=== PATIENT | female | born 1980 | race Hispanic/Latino ===

== ENCOUNTER 2023-07-10 06:59 | Day surgery (SDC) | payer BC ==
[2023-07-07 10:54] LABS: Absolute Lymphocytes (CBC) 1.7 K/uL (0.7-4.9); Hematocrit 35.1 % (36.0-45.0); Lymphocytes % 22.5 % (15.3-44.8); MCV 79.7 fL (80-100); MPV 8.4 fL (7.6-11.3); Platelets 350 thou/uL (152-406)
--- NOTE | 2023-07-07 10:54 | RAD REPORT ---
EXAM DESCRIPTION: RAD - Chest Pa And Lat (2 Views) - 07/07/2023 10:46 am CLINICAL HISTORY: Pre op pending carpal tunnel release Chest pain. COMPARISON: No comparisons FINDINGS: The lungs are clear. The heart is normal in size. No displaced fractures. IMPRESSION: No acute or concerning finding suspected.
[2023-07-07 11:02] LABS: Protime INR 1.1
[2023-07-07 11:08] LABS: Potassium 3.9 mEq/L (3.5-5.1)
--- NOTE | 2023-07-08 18:12 | EKG ---
Test Date: 2023-07-07 Test Time: 10:28:59 [employer] Psych[employer] Nurse: ISHAN MEASUREMENT RESULTS: Intervals: Rate: 71 KS: 148 QRSD: 80 QT: 382 QTc: 415 [place]: P: 56 KS: 148 QRS: 83 T: 27 INTERPRETIVE STATEMENTS: Normal sinus rhythm Normal ECG No previous ECG available for comparison Electronically Signed On 07-08-23 18:10:35 CDT by Tavon Jolley
[2023-07-10] MEDS ORDERED: CEFAZOLIN SODIUM 1 GM/VIAL ONE (07:27)
[2023-07-10] MEDS ORDERED: Ringers Lactate 1,000 ML IV ONE (07:27)
[2023-07-10] MEDS ORDERED: NS 0.9% VIAL 30 ML ONE (07:32)
[2023-07-10] MEDS ORDERED: MIDAZOLAM HCL 2 MG/2 ML INJ ONE (07:32)
[2023-07-10] MEDS ORDERED: LIDOCAINE 2% MPF 5 ML VIAL ONE (07:32)
[2023-07-10] MEDS ORDERED: FENTANYL CITR 100 MCG/2 ML ONE (07:32)
[2023-07-10] MEDS ORDERED: propofoL 200 MG/20 ML VIAL IV ONE (07:32)
[2023-07-10] MEDS ORDERED: KETOROLAC 30 MG/ML INJ ONE (07:32)
[2023-07-10] MEDS ORDERED: ONDANSETRON 4 MG/2 ML VIAL ONE (07:43)
[2023-07-10] MEDS ORDERED: LIDOCAINE 1% MPF 30 ML VIAL ONE (07:44)
[2023-07-10] MEDS: BUPIVACAINE 0.25% PF 10 ML VIAL ONE ×2 (08:25→08:37)
--- NOTE | 2023-07-10 09:02 | P.BOP ---
Preoperative diagnosis: right carpal tunnel syndrome Postoperative diagnosis: same Primary procedure: right open carpal tunnel release Door Captain: NONE,NONE Estimated blood loss: 2 cc Specimen: none Findings: see dictation Anesthesia: Leann block Complications: None Implants: none Fluids & blood products: per anesthesia record; TT: 29 mins @ 300 mmHg Transferred to: Recovery Room Condition: Good
--- NOTE | 2023-07-10 09:05 | P.OP ---
Preoperative diagnosis: right carpal tunnel syndrome Postoperative diagnosis: same Primary procedure: right open carpal tunnel release Anesthesia: Leann block Estimated blood loss: 2 cc Specimen: none Findings: see dictation Operative Technique: Reason for Surgery: The patient had physical exam findings as well as EMG findings consistent with right carpal tunnel syndrome. I discussed with the patient at length risks and benefits associated with the procedure. They expressed understanding and elected proceed with operative treatment. Description of Procedure: After informed consent was obtained the patient was identified in the preoperative holding area. The right upper extremity was marked patient. Patient then brought back to the operating room transferred the operative table in supine fashion. The right upper extremity was exsanguinated and the tourniquet was inflated to 300 mmHg and placed under [place] block anesthesia. Approximately a 3 cm longitudinal incision was made just ulnar to the thenar crease. Dissection was then taken down to the palmar fascia which was identified. A Vidal elevator was then placed just deep to the palmar fascia to protect the median nerve at all times. A 15 blade was then used to release the palmar fascia and transverse carpal ligament leaving the Vidal elevator to protect the nerve at all times. Any remaining fascial bands were then released using a blunt tip Metzenbaum scissor. The tips were him superficially to protect the median nerve at all times. The wound was then irrigated thoroughly with normal saline. The skin was approximated using a 5-0 Prolene. Sterile dressings were applied and patient was awakened and transferred to PACU in stable condition. Postoperative plan: The patient will follow-up in 1 to 2 weeks for wound check and suture removal. They may begin to work on range of motion exercises at this time. Complications: None Implants: none Fluids & blood products: per anesthesia record; TT: 30 mins @ 300 mmHg Transferred to: Recovery Room Condition: Good
[2023-07-10] MEDS ORDERED: CODEINE 30MG/APAP 300MG TAB ONE (09:52)
[2023-07-10 10:23] VITALS: TEMP 97.8; O2SAT 100
[2023-07-10 10:24] VITALS: BP 110/74
== END 2023-07-10 09:59 | disposition home or self-care (01) ==
LOC: PRE 06:59
PROVIDERS: ATTEND Orthopaedic Surgery Sports Medicine
PROC: 01N50ZZ Release Median Nerve, Open Approach (ICD-10-PCS; principal; 2023-07-10 08:00)
DX: G56.01 Carpal tunnel syndrome, right upper limb (principal)
CPT/HCPCS: 93005; 85025; 80048; 36415; 85610; 85730; 71046; 64721; A4216; J2704; J2001 ×2; J2250; J3010; J2405; J7120; J0690

== ENCOUNTER 2023-07-10 12:38 | Emergency (ER) | payer BC ==
--- OUTSIDE RECORDS SUMMARY | 2023-07-10 12:45 | XMS REPORT | Continuity of Care Document ---
:1980 Author Organization [facility] t Address [address] [place] [address] Care Team Providers Name Role Phone Vinay Cruz Attending Clinician Unavailable Eric Anderson Attending Clinician Lab, Adc Fam Pob I Attending Clinician Unavailable Renuka Chambers Attending Clinician RENUKA KHAN Attending Clinician Unavailable Doctor Unassigned, [place] Attending Clinician Unavailable ANKITA THORNTON M.D. Attending Clinician Unavailable Physician, Non Associated Attending Clinician Unavailable Ankita Thornton Attending Clinician Ankita Thornton Admitting Clinician Payers Payer Name Policy Type Policy Number Effective Date Expiration Date S jose enrique Blue [employer] 6 [id number] 2019 Common Spiri t Blue Shield of 00:00:00 - [facility] Problems Condition Condition Condition Status Onset Resolution Last Treating Co mments Source Name Details Category Date Date Treatment Clinician Date BDDC - BDDC - Diagnosis Active 2016-02-13 M emoritraci GERD K21.9 GERD K21.9 02-07 08:27:00 l Active 00:00: Sunol 02/08/2016 00 [facility] RAPID RAPID Diagnosis Active 2016-01-05 Mem oria HEART BEAT HEART BEAT 01-05 16:36:00 l Active 00:00: Aleksandar 01/05/2016 00 [facility] DEHYDRATIO DEHYDRATI Diagnosis Active 2016-01-08 Ravin N ON Active 01-05 08:16:00 l 01/05/2016 00:00: Benito paulino [address] POST POST Diagnosis Active 2015-12-26 Mem oria GASTRIC GASTRIC 12-26 22:44:00 l SLEEVE SLEEVE 00:00: Aleksandar COMPLICATI COMPLICATI 00 ONS ONS Active 12/26/2015 [facility] PERFORATED Diagnosis Active 2016-01-05 Memoria BOWEL PERFORATED 12-26 13:50:00 l BOWEL 00:00: Sunol Active 00 12/26/2015 [facility] BOD POD BOD POD Diagnosis Active 2018-11-05 Memoria Active 11-30 14:16:00 l 11/30/2000 08:00: Benito paulino SMR [address] [place] [id number] [place] [id number] tunnel Spirit syndrome - [facility] of right [facility] [id number] [place] [address] tunnel Spirit syndrome - [facility] of left [facility] [id number] Seasonal Problem Comm on allergic Spirit rhinitis, - [facility] unspecifie [facility] [id number] Iron Problem Common deficiency Spirit anemia due - [facility] to dietary [facility] [id number] History of Problem Co mmon gastric Spirit bypass - [facility] [id number] Non-season Problem Com mon al Spirit allergic - [facility] rhinitis, St unspecifie kes [facility] [id number] Prediabete Problem Co mmon s Spirit - [facility] [id number] Migraine Problem Comm on without Spirit aura and - [facility] migrainosu Medica l s, not Center intractabl e [id number] Constipati Problem Com mon on, Spirit unspecifie - CHI d St constipati [facility] on type [facility] [id number] Acute non Problem Com mon intractabl Spirit e - [facility] tension-ty [facility] [id number] Adult BMI Problem Com mon 34.0-34.9 Spirit kg/sq m - [facility] [id number] History of Problem Co mmon laparoscop Spirit [facility] cholecyste [facility] Type 2 Type 2 Problem Active [facility] diabetes diabetes Physic i mellitus mellitus ans Asthma Asthma Problem Active [facility] Physici ans Vitamin D Vitamin D Problem Active [facility] deficiency deficiency Ph ysici ans Anemia Anemia Problem Active 2023-06-18 Jerry tanner (disorder) (disorder) 23:27:07 l Active Sunol Problem 06/18/2023 [facility] Asthenia Asthenia Problem Active 2023-06-18 Memoria (finding) (finding) 23:27:07 l Active Sunol Problem 06/18/2023 [facility] Carpal Carpal Problem Active 2023-06-18 Jerry tanner tunnel tunnel 23:27:07 l syndrome syndrome Benito n (disorder) (disorder) Active Problem 06/18/2023 [facility] 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 23:27:07 l thy thy Sunol (disorder) (disorder) Active Problem 06/18/2023 [facility] Headache Headache Problem Active 2023-06-18 Memoria (finding) (finding) 23:27:07 l Active Aleksandar Problem 06/18/2023 [facility] Migraine Migraine Problem Active 2023-06-18 Memoria (disorder) (disorder) 23:27:07 l Active Sunol Problem 06/18/2023 [facility] Simple Simple Problem Active 2023-06-18 Jerry tanner obesity obesity 23:27:07 l (disorder) (disorder) He rmann Active Problem 06/18/2023 [facility] PERFORATIO PERFORATI Diagnosis Active 2016-01-05 Memoria N OF ON OF 13:50:00 l INTESTINE INTESTINE Herm mundo (NONTRAUMA (NONTRAUMA TIC) TIC) Active [facility] Allergies, Adverse Reactions, Alerts Allergy Allergy Status Severity Reaction(s) Onset Inactive Treating Comm ents Source Name Type Date Date Clinician NO KNOWN Drug Active Univers ALLERGIE Class ity of [facility] No Known No Known Active Memori a Medicati Medicati l on on Sunol Allerggrecia [facility] Social History Social Habit Start Date Stop Date Quantity Comments Source Exposure to SARS-CoV-2 Yes Un [facility] (event) [facility] [place] History of Tobacco Use Co mmon [facility] Sex Assigned At Com mon [facility] Smoking Status Start Date Stop Date Source Unknown if ever smoked [facility] Tobacco smoking status 2023-05-05 20:45:33 2023-05-05 20:45:33 M [facility] Social History [facility] Medications Ordered Filled Start Stop Current Ordering Indication Dosage Frequency Signature Comments Components Source Medication Medication Date Date Medication? Clinician (SIG) Name Name phentermine Yes TAKE ONE Me moria 37.5 mg 6-06 (1) l oral tablet 20:56: TABLET(S) H ermann 00 BY MOUTH ONCE A DAY. Adipex-P Adipex-P No 1{table QD Adipex-P 37.5 MG 37.5 MG 4-03 t} 37.5 MG 00:00: 00 Adipex-P Adipex-P 2021-11 No 1{table QD Adipex-P 37.5 MG 37.5 MG 2-12 t} 37.5 MG 00:00: 00 Mounsaydaro Marryro 2021-11- No Mounjaro 2.5 2.5 1-10 12-10 2.5 MG/0.5ML MG/0.5ML 00:00: 00:00 MG/0.5ML 00 :00 Adipex-P Adipex-P 2021-11 No 1{table QD Adipex-P 37.5 MG 37.5 MG 0-10 t} 37.5 MG 00:00: 00 Adipex-P Adipex-P 2021-0 No 1{table QD Adipex-P 37.5 MG 37.5 MG 5-24 t} 37.5 MG 00:00: 00 Adipex-P Adipex-P 2021-0 No 1{table QD Adipex-P 37.5 MG 37.5 MG 4-26 t} 37.5 MG 00:00: 00 Adipex-P Adipex-P 2022- No 1{table QD Adipex-P 37.5 MG 37.5 MG 1-13 02-12 t} 37.5 MG 00:00: 00:00 00 :00 Adipex-P Adipex-P 2020-11 No 1{table QD Adipex-P 37.5 MG 37.5 MG 1-10 t} 37.5 MG 00:00: 00 Adipex-P Adipex-P 2020-11 No 1{table QD Adipex-P 37.5 MG 37.5 MG 1-10 t} 37.5 MG 00:00: 00 Adipex-P Adipex-P 2020-11 No 1{table QD Adipex-P 37.5 MG 37.5 MG 1-10 t} 37.5 MG 00:00: 00 Adipex-P Adipex-P 2020-11- No 1{table QD Adipex-P 37.5 MG 37.5 MG 0-19 11-18 t} 37.5 MG 00:00: 00:00 00 :00 Ivermectin Ivermectin No QD Ivermectin 3 MG 3 MG 8-27 3 MG 00:00: 00 ProAir HFA ProAir HFA No 2{puffs ProAir HFA 108 (90 108 (90 8-16 _as_nee 108 (90 Base) Base) 00:00: ded} Base) MCG/ACT MCG/ACT 00 MCG/ACT ProAir HFA ProAir HFA No 2{puffs ProAir HFA 108 (90 108 (90 8-16 _as_nee 108 (90 Base) Base) 00:00: ded} Base) MCG/ACT MCG/ACT 00 MCG/ACT ProAir HFA ProAir HFA No 2{puffs ProAir HFA 108 (90 108 (90 8-16 _as_nee 108 (90 Base) Base) 00:00: ded} Base) MCG/ACT MCG/ACT 00 MCG/ACT ProAir HFA ProAir HFA No 2{puffs ProAir HFA 108 (90 108 (90 8-16 _as_nee 108 (90 Base) Base) 00:00: ded} Base) MCG/ACT MCG/ACT 00 MCG/ACT ProAir HFA ProAir HFA No 2{puffs ProAir HFA 108 (90 108 (90 8-16 _as_nee 108 (90 Base) Base) 00:00: ded} Base) MCG/ACT MCG/ACT 00 MCG/ACT ProAir HFA ProAir HFA No 2{puffs ProAir HFA 108 (90 108 (90 8-16 _as_nee 108 (90 Base) Base) 00:00: ded} Base) MCG/ACT MCG/ACT 00 MCG/ACT ProAir HFA ProAir HFA No 2{puffs ProAir HFA 108 (90 108 (90 8-16 _as_nee 108 (90 Base) Base) 00:00: ded} Base) MCG/ACT MCG/ACT 00 MCG/ACT ProAir HFA ProAir HFA No 2{puffs ProAir HFA 108 (90 108 (90 8-16 _as_nee 108 (90 Base) Base) 00:00: ded} Base) MCG/ACT MCG/ACT 00 MCG/ACT ProAir HFA ProAir HFA No 2{puffs ProAir HFA 108 (90 108 (90 8-16 _as_nee 108 (90 Base) Base) 00:00: ded} Base) MCG/ACT MCG/ACT 00 MCG/ACT ProAir HFA ProAir HFA No 2{puffs ProAir HFA 108 (90 108 (90 8-16 _as_nee 108 (90 Base) Base) 00:00: ded} Base) MCG/ACT MCG/ACT 00 MCG/ACT ProAir HFA ProAir HFA No 2{puffs ProAir HFA 108 (90 108 (90 8-16 _as_nee 108 (90 Base) Base) 00:00: ded} Base) MCG/ACT MCG/ACT 00 MCG/ACT ProAir HFA ProAir HFA No 2{puffs ProAir HFA Common 108 (90 108 (90 8-16 _as_nee 108 (90 Spi rit Base) Base) 00:00: ded} Base) - [facility] MCG/ACT MCG/ACT 00 MCG/ACT [facility] ProAir HFA ProAir HFA No 2{puffs ProAir HFA Common 108 (90 108 (90 8-16 _as_nee 108 (90 Spi rit Base) Base) 00:00: ded} Base) - [facility] MCG/ACT MCG/ACT 00 MCG/ACT [facility] Azithromyci Azithromyci 2020- No QD Azithromyc Common n 250 MG n 250 MG 8-16 08-21 in 250 MG S pirit 00:00: 00:00 - [facility] 00 :00 [facility] Azithromyci Azithromyci 2020- No QD Azithromyc Common n 250 MG n 250 MG 8-16 08-21 in 250 MG S pirit 00:00: 00:00 - [facility] 00 :00 [facility] Rimegepant Yes 75 mg = 1 Me moria 75 MG 3-17 tab, PO, l Disintegrat 21:45: ONCE, # 1 H ermann ing Oral 00 tab, 0 Tablet Refill(s), [Nurtec] other ProAir HFA ProAir HFA No 2{puffs ProAir HFA 108 (90 108 (90 1-08 _as_nee 108 (90 Base) Base) 00:00: ded} Base) MCG/ACT MCG/ACT 00 MCG/ACT ProAir HFA ProAir HFA No 2{puffs ProAir HFA 108 (90 108 (90 1-08 _as_nee 108 (90 Base) Base) 00:00: ded} Base) MCG/ACT MCG/ACT 00 MCG/ACT ProAir HFA ProAir HFA No 2{puffs ProAir HFA 108 (90 108 (90 1-08 _as_nee 108 (90 Base) Base) 00:00: ded} Base) MCG/ACT MCG/ACT 00 MCG/ACT ProAir HFA ProAir HFA No 2{puffs ProAir HFA 108 (90 108 (90 1-08 _as_nee 108 (90 Base) Base) 00:00: ded} Base) MCG/ACT MCG/ACT 00 MCG/ACT ProAir HFA ProAir HFA No 2{puffs ProAir HFA 108 (90 108 (90 1-08 _as_nee 108 (90 Base) Base) 00:00: ded} Base) MCG/ACT MCG/ACT 00 MCG/ACT ProAir HFA ProAir HFA No 2{puffs ProAir HFA 108 (90 108 (90 1-08 _as_nee 108 (90 Base) Base) 00:00: ded} Base) MCG/ACT MCG/ACT 00 MCG/ACT ProAir HFA ProAir HFA No 2{puffs ProAir HFA 108 (90 108 (90 1-08 _as_nee 108 (90 Base) Base) 00:00: ded} Base) MCG/ACT MCG/ACT 00 MCG/ACT ProAir HFA ProAir HFA No 2{puffs ProAir HFA 108 (90 108 (90 1-08 _as_nee 108 (90 Base) Base) 00:00: ded} Base) MCG/ACT MCG/ACT 00 MCG/ACT ProAir HFA ProAir HFA No 2{puffs ProAir HFA 108 (90 108 (90 1-08 _as_nee 108 (90 Base) Base) 00:00: ded} Base) MCG/ACT MCG/ACT 00 MCG/ACT ProAir HFA ProAir HFA No 2{puffs ProAir HFA 108 (90 108 (90 1-08 _as_nee 108 (90 Base) Base) 00:00: ded} Base) MCG/ACT MCG/ACT 00 MCG/ACT ProAir HFA ProAir HFA No 2{puffs ProAir HFA 108 (90 108 (90 1-08 _as_nee 108 (90 Base) Base) 00:00: ded} Base) MCG/ACT MCG/ACT 00 MCG/ACT ProAir HFA ProAir HFA No 2{puffs ProAir HFA 108 (90 108 (90 1-08 _as_nee 108 (90 Base) Base) 00:00: ded} Base) MCG/ACT MCG/ACT 00 MCG/ACT ProAir HFA ProAir HFA No 2{puffs ProAir HFA Common 108 (90 108 (90 1-08 _as_nee 108 (90 Spi rit Base) Base) 00:00: ded} Base) - [facility] MCG/ACT MCG/ACT 00 MCG/ACT [facility] ProAir HFA ProAir HFA 2020-0 No 2{puffs ProAir HFA Common 108 (90 108 (90 1-08 _as_nee 108 (90 Spi rit Base) Base) 00:00: ded} Base) - [facility] MCG/ACT MCG/ACT 00 MCG/ACT [facility] topiramate 1 Yes 50 mg = 2 Me moria 25 MG Oral 2-09 tab, PO, l Tablet 19:49: Bedtime, # Samantha nn [Topamax] 00 60 tab, 3 Refill(s), Pharmacy: [facility] 149, 149.86, cm, 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, Height, 72.727, kg, 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, Weight topiramate 0 Yes 25 mg = 1 Me moria 25 MG Oral 7-24 tab, PO, l Tablet 18:56: BID, # 60 Benito n [Topamax] 00 tab, 3 Refill(s), Pharmacy: [facility] 149, 152.4, cm, 06/22/20 13:35:00 CDT, Height, 80.909, kg, 06/22/20 13:35:00 CDT, Weight Sumatriptan Yes 100 mg = 1 Memoria 100 MG Oral 7-24 tab, PO, l Tablet 18:56: PRN, PRN Sunol [Imitrex] 00 headache, # 9 tab, 1 Refill(s), Pharmacy: [facility] 149, 152.4, cm, 06/22/20 13:35:00 CDT, Height, 80.909, kg, 06/22/20 13:35:00 CDT, Weight Phentermine Yes 15 mg = 1 M emoria Hydrochlori 7-24 cap, PO, l de 15 MG 18:37: Daily, # Samantha nn Oral 00 30 cap, 0 Capsule Refill(s) Vitamin D Vitamin D Yes PRATIMA Take 1 UT (Ergocalcif (Ergocalcif 4-16 BREAUX N.P. capsule Physici malini) [id number] malini) 56092 00:00: two times ans UNIT Oral UNIT Oral 00 per week Capsule Capsule Potassium No Notes: Memori a Chloride 10 2-07 (Same as: l MEQ 20:00: K-Dur 10) Extended "Do Not Release Crush" Tablet With food and full glass of water potassium No Notes: Memori a chloride 2-07 (Same as: l 15:00: KCL) Infuse no faster than 10 mEq/hr if given peripheral ly. potassium No 10 mEq, Memor ia chloride 01-06 Route: l 14:01: IVPB, Q1H, Dosing Weight 85, kg, Total Dose = 60 meq, Priority: NOW, Start date: 01/06/16 8:01:00, Duration: 6 doses or times, Stop date: 01/06/16 13:01:00, Periphe ral Line sodium No 15 mmol, Memoria phosphate 01-06 Route: l 04:51: IVPB, ONCE, Dosing Weight 85, kg, PRN, Priority: NOW, Start date: 01/05/16 22:51:00, Stop date: 02/04/16 22:50:00, none Fluconazole No Notes: Jerry tanner -07 (Same as: l 03:00: Diflucan) Amoxicillin No Notes: Jerry tanner 500 MG / 2-07 With food. l Clavulanate 03:00: (Same as: H ermann 125 MG Oral 00 Augmentin Tablet 500) [Augmentin 500-mg] tramadol No Notes: Not Mem oria hydrochlori 01-06 to exceed l de 50 MG 02:05: 400mg/day. Her patton Oral Tablet 00 (Same As: Ultram) Ondansetron No Notes: Jerry tanner 4 MG 01-06 (Same as: l Disintegrat 02:05: Zofran Herm mundo ing Tablet 00 ODT) Tylenol No Notes: Memoria with 2-07 (acetamino l Codeine 120 02:05: phen-codei Aleksandar mg-12 mg/5 00 ne 120-12 mL oral mg/5 ml liquid oral liq) Do not exceed 4gm/day of acetaminop hen. (Same as: Tylenol w/Codeine) Magnesium No Notes: Memori a Sulfate 2-07 WASTE: F/P l 02:00: - Sink; E Sunol 00 - Municipal Trash Bin sodium No 15 mmol, 5 Memor ia phosphate + 2-07 mL, Route: l Sodium 01:59: IVPB, PRN, Samantha nn Chloride 00 Dosing 0.9% IV 250 Weight 85, mL kg, PRN Abnormal Lab Result, Start date: 01/05/16 19:59:00, Duration: 30 day, Stop date: 02/04/16 19:58:00 Sodium No 1,000 mL, Memori a Chloride 2-06 Rate: 100 l 0.154 22:29: ml/hr, Sunol MEQ/ML 00 Infuse Injectable over: 10.1 Solution hr, Route: IV, Dosing Weight 85 kg, Total Volume: 1,011.2, Priority: STAT, Start date: 01/05/16 16:29:00, Duration: 1 doses or times, Stop date: 01/06/16 2:34:00 D5W 1/2NS + No Notes: Jerry tanner KCL 20mEq/L 2-06 PREMIX IV l 1000ml 22:29: - Do Not Aleksandar (Premix) 00 Alter 1,000 mL WASTE: F/P - Sink; E - Municipal Trash Bin Lovenox No Notes: Memoria 2-06 (Same as: l 22:28: Lovenox) Aleksandar 00 Zofran ODT No Notes: Memor ia 2-06 (Same as: l 22:26: Zofran Sunol 00 ODT) potassium No Notes: Memori a chloride 2-06 (Same as: l 22:00: KCL) Aleksandar 00 Infuse no faster than 10 mEq/hr if given peripheral ly. Isolyte S No Notes: Memori a PH 7.4 2-06 (Same as: l 1,000 mL 20:25: Isolyte S Herm mundo 00 PH 7.4) tramadol Yes 100 mg = 2 Mem oria hydrochlori 2-02 tab, PO, l de 50 MG 15:14: Q6H, PRN Samantha nn Oral Tablet 00 Pain Score 4-6, X 5 day, # 40 tab, 0 Refill(s) fluconazole Yes 400 mg = 2 Memoria 200 mg oral 2-02 tab, PO, l tablet 15:14: [id number], X Samantha nn 00 8 day, # 16 tab, 0 Refill(s) Amoxicillin Yes 1 tab, PO, Memoria 500 MG / 2-02 [id number], X l Clavulanate 15:14: 8 day, # He rmann 125 MG Oral 00 24 tab, 0 Tablet Refill(s) [Augmentin 500-mg] Ondansetron Yes 4 mg = 1 Me moria 4 MG 2-02 tab, PO, l Disintegrat 15:14: TID, PRN He rmann ing Tablet 00 Nausea / Vomiting, Dissolve tab under tongue, X 5 day, # 15 tab, 0 Refill(s) Tylenol Yes 15 mL, PO, Jerry tanner with 2-02 Q6H, PRN l Codeine 120 15:14: Pain Score Sunol mg-12 mg/5 00 1-3, X 7 mL oral day, # 420 liquid mL, 0 Refill(s) Diflucan No Notes: Memoria 2-02 (Same as: l 13:00: Diflucan) Aleksandar 00 potassium No Notes: Memori a chloride 2-01 (Same as: l 22:00: KCL) Aleksandar Infuse no faster than 10 mEq/hr if given peripheral ly. Zofran ODT No Notes: Memor ia 2-01 (Same as: l 18:09: Zofran Aleksandar 00 ODT) potassium No Notes: Memori a chloride 2-01 (Same as: l 16:53: KCL) Aleksandar 00 Infuse over 2 hours. potassium No Notes: Memori a chloride 2-01 (Same as: l 16:08: KCL) Sunol 00 Infuse over 2 hours. Potassium No Notes: Memori a Chloride 2-01 (Same as: l 1.33 MEQ/ML 15:02: Potassium H ermann Oral 00 Chloride) Solution Magnesium No Notes: Memori a Sulfate 2-01 WASTE: F/P l 15:02: - Sink; E Aleksandar 00 - Municipal Trash Bin Ondansetron No Notes: Jerry tanner 0.8 MG/ML 12-31 (Same as: l Oral 14:03: Zofran) Aleksandar Solution 00 [Zofran] tramadol No Notes: Not Mem oria hydrochlori 12-31 to exceed l de 50 MG 14:03: 400mg/day. Her patton Oral Tablet 00 (Same As: Ultram) Tylenol No Notes: Memoria with 12-31 (acetamino l Codeine 120 14:03: phen-codei Aleksandar mg-12 mg/5 00 ne 120-12 mL oral mg/5 ml liquid oral liq) Do not exceed 4gm/day of acetaminop hen. (Same as: Tylenol w/Codeine) Amoxicillin No Notes: Jerry tanner 500 MG / 12-31 With food. l Clavulanate 14:00: (Same as: H ermann 125 MG Oral 00 Augmentin Tablet 500) [Augmentin 500-mg] Acetaminoph No 15 mL, PO, Memoria en 24 MG/ML 12-30 Q6H, PRN l / Codeine 18:45: Pain, 0 Samantha nn Phosphate 00 Refill(s) 2.4 MG/ML Oral Solution ondansetron No 4 mg = 1 Me moria 4 mg oral 12-30 tab, PO, l tablet 18:45: Q8H Sunol 00 Phenergan No Notes: Do Mem oria -31 not give l 17:04: IV push. Aleksandar 00 (Same as: Phenergan) Zofran No Notes: Memoria -31 (Same as: l 17:03: Zofran) Aleksandar MEDICATION WASTE Product Size: 4 mg Product Wasted: ___ mg potassium No 10 mEq, 50 Me moria chloride 1-31 mL, Route: l 14:10: IVPB, Drug Aleksandar form: INJ, Q1H, Dosing Weight 89.545, kg, Total Dose = 40 meq, Priority: STAT, Start date: 12/30/15 8:10:00, Duration: 4 doses or times, Stop date: 12/30/15 11:10:00, Periphe ral Line Potassium No Notes: Memori a Chloride 1-31 (Same as: l 1.33 MEQ/ML 14:09: Potassium H ermann Oral 00 Chloride) Solution docusate No Notes: Memoria sodium 150 1-31 (Same as: l mg/15 mL 03:00: Colace) Benito n oral liquid 00 Ofirmev No Notes: Memoria 1-31 Infuse l 00:00: over 15 Aleksandar 00 minutes Do not exceed 4gm/day of acetaminop hen MEDICATION WASTE Product Size: 1000 mg Product Wasted: ___ mg Tylenol No 15 mg/kg, Memor ia 12-29 Route: PO, l 18:00: Drug form: Sunol 00 LIQ, Q6H, Dosing Weight 89.545, kg, Start date: 12/29/15 12:00:00, Duration: 30 day, Stop date: 01/28/16 6:00:00, For term infants; Dosing 72 HR No Notes: Memoria Scopolamine -30 Change l 0.0139 16:20: patch Aleksandar MG/HR 00 every 72 Transdermal hours Patch (Same as: Transderm- Scop) Zofran No Notes: Memoria 1-30 (Same as: l 16:19: Zofran) Sunol 00 MEDICATION WASTE Product Size: 4 mg Product Wasted: ___ mg Neutra-Phos No Notes: Jerry tanner 1-30 (Same as: l 14:00: Neutra-Dhiraj Aleksandar 00 s) Potassium No Notes: Memori a Chloride 1-30 (Same as: l 1.33 MEQ/ML 10:47: Potassium H ermann Oral 00 Chloride) Solution D5W 1/2NS + No Notes: Jerry tanner KCL 20mEq/L 130 PREMIX IV l 1000ml 02:34: - Do Not Aleksandar (Premix) 00 Alter 1,000 mL WASTE: F/P - Sink; E - Municipal Trash Bin D5W 1/2NS No 1,000 mL, Mem oria 1000 mL 1-30 Rate: 75 l 02:28: ml/hr, Sunol 00 Infuse over: 13.3 hr, Route: IV, Dosing Weight 89.545 kg, Total Volume: 1,000, Start date: 12/28/15 20:28:00, Stop date: 01/27/16 15:30:00 D5W 1/2NS + 2015-0 No 1,000 mL, Mary thornton KCL 20mEq/L 12-28 Rate: 75 l 1000ml 21:30: ml/hr, (Premix) Infuse 1000 mL over: 13.3 hr, Route: IV, Dosing Weight 89.545 kg, Total Volume: 1,000, Start date: 12/28/15 15:30:00, Duration: 30 day, Stop date: 01/27/16 15:29:00 Dextrose No 12.5 gm, Memor ia 50% Syringe 12-28 25 mL, l 20:51: Route: IVP, Drug Form: INJ, Dosing Weight 89.545, kg, PRN, PRN Abnormal Lab Result, Start date: 12/28/15 14:51:00, Duration: 30 day, Stop date: 01/27/16 14:50:00, For FSBG 40 mg/dL - 60 mg/dL Insulin No 60 units) Jerry tanner regular 12-28 WASTE: F/P l 20:51: - Black; E - Qoopl Trash Bin Stable for 28 days at room temperatur e Expires in days from ____Date Zofran No 4 mg, Memoria 12-28 Route: l 15:26: IVP, Drug form: INJ, ONCE, Dosing Weight 89.545, kg, Start date: 12/28/15 9:26:00, Stop date: 12/28/15 9:26:00 potassium No 10 mEq, Memor ia chloride 12-28 Route: l 12:00: IVPB, Q1H, Dosing Weight 89.545, kg, Total Dose = 40 meq, Start date: 12/28/15 6:00:00, Duration: 4 doses or times, Stop date: 12/28/15 9:00:00, Periphe ral Line Magnesium No Notes: Memori a Sulfate 12-28 WASTE: F/P l 12:00: - Sink; E Sunol - Municipal Trash Bin Diflucan No Notes: Memoria 12-28 (Same as: l 12:00: Diflucan) Aleksandar Calcium No Notes: Memoria Gluconate 12-28 WASTE: F/P l 07:50: - Sink; E Sunol - Municipal Trash Bin Isolyte S No 500 mL, Memor ia PH-7.4 12-27 Route: IV, l (Bolus) IV 22:07: Dosing Samantha Weight 89.545, kg, ONCE, Start date: 12/27/15 16:07:00, Stop date: 12/27/15 16:07:00 Zofran No 4 mg, Memoria 12-27 Route: l 18:27: IVP, Drug form: INJ, ONCE, Dosing Weight 89.545, kg, Start date: 12/27/15 12:27:00, Stop date: 12/27/15 12:27:00 Diflucan No Notes: Memoria 12-27 (Same as: l 15:00: Diflucan) Sunol 00 Flagyl No Notes: Memoria 12-27 (Same as: l 14:00: Flagyl) Avoid alcohol. Isolyte S No Notes: Memori a PH 7.4 12-27 (Same as: l 1,000 mL 13:10: Isolyte S PH 7.4) Ofirmev No Notes: Memoria 12-27 Infuse l 12:00: over 15 Sunol minutes Do not exceed 4gm/day of acetaminop hen MEDICATION WASTE Product Size: 1000 mg Product Wasted: ___ mg Zofran No Notes: Memoria 12-27 (Same as: l 11:16: Zofran) Aleksandar 00 MEDICATION WASTE Product Size: 4 mg Product Wasted: ___ mg potassium No Notes: Memori a chloride 12-27 (Same as: l 10:00: KCL) Aleksandar 00 Infuse over 2 hours. Enoxaparin No Notes: Memor ia 12-27 (Same as: l 10:00: Lovenox) Isolyte S No 1,000 mL, Mem oria PH-7.4 12-27 Route: IV, l (Bolus) IV 09:24: Dosing Samantha Weight 89.545, kg, ONCE, Start date: 12/27/15 3:24:00, Stop date: 12/27/15 3:24:00 Dilaudid No Notes: Memoria 12-27 Same as: l 09:20: Dilaudid normal No 1,000 mL, Memori a saline 0.9% 12-27 Rate: 125 l IV 1,000 mL 09:19: ml/hr, Herm Infuse over: 8 hr, Route: IV, Dosing Weight 89.545 kg, Total Volume: 1,000, Start date: 12/27/15 3:19:00, Duration: 30 day, Stop date: 01/26/16 3:18:00 Flagyl No Notes: Memoria 12-27 (Same as: l 09:18: Flagyl) Avoid alcohol. Protonix No Notes: For Mem oria 12-27 IV push l 09:18: reconstitu te with 10 ml 0.9% sodium chloride and push over 2 minutes. (Same as: Protonix) Zosyn No Notes: Memoria 12-27 (Same as: l 09:18: Zosyn) Dosing based on Piperacill in component MEDICATION WASTE Product Size: 3375 mg Product Wasted: ___ mg Diflucan No Notes: Memoria 12-27 (Same as: l 08:36: Diflucan) Sunol 00 Iohexol No Notes: Memoria 12-27 (same l 07:15: as:Omnipaq ue 350). WASTE: F/P - Black; E - Municipal Trash Bin Potassium No Notes: Memori a Chloride 12-27 (Same as: l 1.33 MEQ/ML 05:13: Potassium H ermann Oral 00 Chloride) Solution Flagyl No Notes: Memoria 12-27 (Same as: l 03:28: Flagyl) Aleksandar 00 Avoid alcohol. cefepime No Notes: Memoria 12-27 (Same As: l 03:28: Maxipime) Sunol 00 MEDICATION WASTE Product Size: 1000 mg Product Wasted: ___ mg Vancomycin No 2000 mg: Me moria 12-27 infuse l 03:27: over 2.5 Aleksandar 00 hours MEDICATION WASTE Product Size: 1000 mg Product Wasted: ___ mg Sodium No 2,000 mL, Memori a Chloride 12-27 2000 l 0.154 03:23: ml/hr, Sunol MEQ/ML 00 Infuse Injectable Over: 1 Solution hr, Route: IV, 2,000, Drug form: INJ, ONCE, Priority: STAT, Dosing Weight 89.545 kg, Start date: 12/26/15 21:23:00, Duration: 1 doses or times, Stop date: 12/26/15 21:23:00 Ferrous Ferrous Yes Vinay 1 tablet Com mon Sulfate Sulfate [facility] Calcium Calcium Yes Vinay not Common Citrate Citrate Cruz defined [facility] Vitamin B12 Vitamin B12 Yes Vinay one Common [facility] [facility] Topamax Topamax Yes Vinay 1 tablet Com mon [facility] Multivitami Multivitami Yes Vinay not Common n Gummies n Gummies Cruz defined S pirit Adult Adult [facility] Slow Slow Yes Vinay 1 tablet Common Release Release [facility] [place] [facility] Calcium Calcium No Calcium Common Citrate 500 Citrate 500 Citrate Spirit MG MG 500 MG [facility] Adipex-P Adipex-P No 1{table QD Adipex-P Common 37.5 MG 37.5 MG t} 37.5 MG [facility] Vitamin B12 Vitamin B12 No QD Vitamin 2500 2500 B12 2500 Slow Slow No 1{table QD Slow Release Release t} Release Iron 160 Iron 160 Iron 160 (50 Fe) MG (50 Fe) MG (50 Fe) MG Ferrous Ferrous No 1{table BID Ferrous Sulfate 325 Sulfate 325 t} Sulfate (65 Fe) MG (65 Fe) MG 325 (65 Fe) MG Adipex-P Adipex-P No 1{table QD Adipex-P 37.5 MG 37.5 MG t} 37.5 MG Calcium Calcium No Calcium Citrate 500 Citrate 500 Citrate MG MG 500 MG Multivitami Multivitami No Multivitam n Gummies n Gummies in Gummies Adult - Adult - Adult - Adipex-P Adipex-P No 1{capsu QD Adipex-P 37.5 MG 37.5 MG le} 37.5 MG Topamax 25 Topamax 25 No 1{table BID Topamax 25 MG MG t} MG Multivitami Multivitami No Multivitam n Gummies n Gummies in Gummies Adult - Adult - Adult - Slow Slow No 1{table QD Slow Release Release t} Release Iron 160 Iron 160 Iron 160 (50 Fe) MG (50 Fe) MG (50 Fe) MG Adipex-P Adipex-P No 1{table QD Adipex-P 37.5 MG 37.5 MG t} 37.5 MG Topamax 25 Topamax 25 No 1{table BID Topamax 25 MG MG t} MG Calcium Calcium No Calcium Citrate 500 Citrate 500 Citrate MG MG 500 MG Ferrous Ferrous No 1{table BID Ferrous Sulfate 325 Sulfate 325 t} Sulfate (65 Fe) MG (65 Fe) MG 325 (65 Fe) MG Vitamin B12 Vitamin B12 No QD Vitamin 2500 2500 B12 2500 Adipex-P Adipex-P No 1{capsu QD Adipex-P 37.5 MG 37.5 MG le} 37.5 MG Ferrous Ferrous No 1{table BID Ferrous Sulfate 325 Sulfate 325 t} Sulfate (65 Fe) MG (65 Fe) MG 325 (65 Fe) MG Vitamin B12 Vitamin B12 No QD Vitamin 2500 2500 B12 2500 Zinc Zinc No Zinc Calcium Calcium No Calcium Citrate 500 Citrate 500 Citrate MG MG 500 MG Adipex-P Adipex-P No 1{capsu QD Adipex-P 37.5 MG 37.5 MG le} 37.5 MG Topamax 50 Topamax 50 No 1{table QD Topamax 50 MG MG t} MG Multivitami Multivitami No Multivitam n Gummies n Gummies in Gummies Adult - Adult - Adult - Slow Slow No 1{table QD Slow Release Release t} Release Iron 160 Iron 160 Iron 160 (50 Fe) MG (50 Fe) MG (50 Fe) MG Slow Slow No 1{table QD Slow Release Release t} Release Iron 160 Iron 160 Iron 160 (50 Fe) MG (50 Fe) MG (50 Fe) MG Calcium Calcium No Calcium Citrate 500 Citrate 500 Citrate MG MG 500 MG Ferrous Ferrous No 1{table BID Ferrous Sulfate 325 Sulfate 325 t} Sulfate (65 Fe) MG (65 Fe) MG 325 (65 Fe) MG Vitamin B12 Vitamin B12 No QD Vitamin 2500 2500 B12 2500 Multivitami Multivitami No Multivitam n Gummies n Gummies in Gummies Adult - Adult - Adult - Topamax 50 Topamax 50 No 1{table QD Topamax 50 MG MG t} MG Zinc Zinc No Zinc Adipex-P Adipex-P No 1{capsu QD Adipex-P 37.5 MG 37.5 MG le} 37.5 MG Slow Slow No 1{table QD Slow Release Release t} Release Iron 160 Iron 160 Iron 160 (50 Fe) MG (50 Fe) MG (50 Fe) MG Calcium Calcium No Calcium Citrate 500 Citrate 500 Citrate MG MG 500 MG Ferrous Ferrous No 1{table BID Ferrous Sulfate 325 Sulfate 325 t} Sulfate (65 Fe) MG (65 Fe) MG 325 (65 Fe) MG Vitamin B12 Vitamin B12 No QD Vitamin 2500 2500 B12 2500 Multivitami Multivitami No Multivitam n Gummies n Gummies in Gummies Adult - Adult - Adult - Topamax 50 Topamax 50 No 1{table QD Topamax 50 MG MG t} MG Zinc Zinc No Zinc Adipex-P Adipex-P No 1{capsu QD Adipex-P 37.5 MG 37.5 MG le} 37.5 MG Adipex-P Adipex-P No 1{capsu QD Adipex-P 37.5 MG 37.5 MG le} 37.5 MG Topamax 50 Topamax 50 No 1{table QD Topamax 50 MG MG t} MG Multivitami Multivitami No Multivitam n Gummies n Gummies in Gummies Adult - Adult - Adult - Zinc Zinc No Zinc Ferrous Ferrous No 1{table BID Ferrous Sulfate 325 Sulfate 325 t} Sulfate (65 Fe) MG (65 Fe) MG 325 (65 Fe) MG Calcium Calcium No Calcium Citrate 500 Citrate 500 Citrate MG MG 500 MG Vitamin B12 Vitamin B12 No QD Vitamin 2500 2500 B12 2500 Slow Slow No 1{table QD Slow Release Release t} Release Iron 160 Iron 160 Iron 160 (50 Fe) MG (50 Fe) MG (50 Fe) MG Slow Slow No 1{table QD Slow Release Release t} Release Iron 160 Iron 160 Iron 160 (50 Fe) MG (50 Fe) MG (50 Fe) MG Multivitami Multivitami No Multivitam n Gummies n Gummies in Gummies Adult - Adult - Adult - Zinc Zinc No Zinc Vitamin B12 Vitamin B12 No QD Vitamin 2500 2500 B12 2500 Ferrous Ferrous No 1{table BID Ferrous Sulfate 325 Sulfate 325 t} Sulfate (65 Fe) MG (65 Fe) MG 325 (65 Fe) MG Topamax 50 Topamax 50 No 1{table QD Topamax 50 MG MG t} MG Adipex-P Adipex-P No 1{capsu QD Adipex-P 37.5 MG 37.5 MG le} 37.5 MG Calcium Calcium No Calcium Citrate 500 Citrate 500 Citrate MG MG 500 MG Adipex-P Adipex-P No 1{capsu QD Adipex-P 37.5 MG 37.5 MG le} 37.5 MG Zinc Zinc No Zinc Multivitami Multivitami No Multivitam n Gummies n Gummies in Gummies Adult - Adult - Adult - Ferrous Ferrous No 1{table BID Ferrous Sulfate 325 Sulfate 325 t} Sulfate (65 Fe) MG (65 Fe) MG 325 (65 Fe) MG Calcium Calcium No Calcium Citrate 500 Citrate 500 Citrate MG MG 500 MG Slow Slow No 1{table QD Slow Release Release t} Release Iron 160 Iron 160 Iron 160 (50 Fe) MG (50 Fe) MG (50 Fe) MG Vitamin B12 Vitamin B12 No QD Vitamin 2500 2500 B12 2500 Topamax 50 Topamax 50 No 1{table QD Topamax 50 MG MG t} MG Calcium Calcium No Calcium Citrate 500 Citrate 500 Citrate MG MG 500 MG Multivitami Multivitami No Multivitam n Gummies n Gummies in Gummies Adult - Adult - Adult - Slow Slow No 1{table QD Slow Release Release t} Release Iron 160 Iron 160 Iron 160 (50 Fe) MG (50 Fe) MG (50 Fe) MG Zinc Zinc No Zinc Topamax 50 Topamax 50 No 1{table QD Topamax 50 MG MG t} MG Adipex-P Adipex-P No 1{capsu QD Adipex-P 37.5 MG 37.5 MG le} 37.5 MG Vitamin B12 Vitamin B12 No QD Vitamin 2500 2500 B12 2500 Ferrous Ferrous No 1{table BID Ferrous Sulfate 325 Sulfate 325 t} Sulfate (65 Fe) MG (65 Fe) MG 325 (65 Fe) MG Slow Slow No 1{table QD Slow Release Release t} Release Iron 160 Iron 160 Iron 160 (50 Fe) MG (50 Fe) MG (50 Fe) MG Zinc Zinc No Zinc Multivitami Multivitami No Multivitam n Gummies n Gummies in Gummies Adult - Adult - Adult - Vitamin B12 Vitamin B12 No QD Vitamin 2500 2500 B12 2500 Adipex-P Adipex-P No 1{capsu QD Adipex-P 37.5 MG 37.5 MG le} 37.5 MG Calcium Calcium No Calcium Citrate 500 Citrate 500 Citrate MG MG 500 MG Topamax 50 Topamax 50 No 1{table QD Topamax 50 MG MG t} MG Ferrous Ferrous No 1{table BID Ferrous Sulfate 325 Sulfate 325 t} Sulfate (65 Fe) MG (65 Fe) MG 325 (65 Fe) MG Calcium Calcium No Calcium Citrate 500 Citrate 500 Citrate MG MG 500 MG Ferrous Ferrous No 1{table BID Ferrous Sulfate 325 Sulfate 325 t} Sulfate (65 Fe) MG (65 Fe) MG 325 (65 Fe) MG Adipex-P Adipex-P No 1{capsu QD Adipex-P 37.5 MG 37.5 MG le} 37.5 MG Topiramate Topiramate No Topiramate 50 MG 50 MG 50 MG Zinc Zinc No Zinc Vitamin B12 Vitamin B12 No QD Vitamin 2500 2500 B12 2500 Topamax 50 Topamax 50 No 1{table QD Topamax 50 MG MG t} MG Slow Slow No 1{table QD Slow Release Release t} Release Iron 160 Iron 160 Iron 160 (50 Fe) MG (50 Fe) MG (50 Fe) MG Multivitami Multivitami No Multivitam n Gummies n Gummies in Gummies Adult - Adult - Adult - Topiramate Topiramate No Topiramate 50 MG 50 MG 50 MG Ferrous Ferrous No 1{table BID Ferrous Sulfate 325 Sulfate 325 t} Sulfate (65 Fe) MG (65 Fe) MG 325 (65 Fe) MG Topamax 50 Topamax 50 No 1{table QD Topamax 50 MG MG t} MG Slow Slow No 1{table QD Slow Release Release t} Release Iron 160 Iron 160 Iron 160 (50 Fe) MG (50 Fe) MG (50 Fe) MG Slow Slow No 1{table QD Slow Release Release t} Release Iron 160 Iron 160 Iron 160 (50 Fe) MG (50 Fe) MG (50 Fe) MG Topamax 50 Topamax 50 No 1{table QD Topamax 50 MG MG t} MG Topiramate Topiramate No Topiramate 50 MG 50 MG 50 MG Ferrous Ferrous No 1{table BID Ferrous Sulfate 325 Sulfate 325 t} Sulfate (65 Fe) MG (65 Fe) MG 325 (65 Fe) MG Slow Slow No 1{table QD Slow Release Release t} Release Iron 160 Iron 160 Iron 160 (50 Fe) MG (50 Fe) MG (50 Fe) MG Ferrous Ferrous No 1{table BID Ferrous Sulfate 325 Sulfate 325 t} Sulfate (65 Fe) MG (65 Fe) MG 325 (65 Fe) MG Topamax 50 Topamax 50 No 1{table BID Topamax 50 MG MG t} MG Topiramate Topiramate No QD Topiramate 50 MG 50 MG 50 MG Slow Slow No 1{table QD Slow Release Release t} Release Iron 160 Iron 160 Iron 160 (50 Fe) MG (50 Fe) MG (50 Fe) MG Topamax 25 Topamax 25 No 1{table BID Topamax 25 MG MG t} MG Ferrous Ferrous No 1{table BID Ferrous Sulfate 325 Sulfate 325 t} Sulfate (65 Fe) MG (65 Fe) MG 325 (65 Fe) MG Adipex-P Adipex-P No 1{capsu QD Adipex-P 37.5 MG 37.5 MG le} 37.5 MG Adipex-P Adipex-P No 1{table QD Adipex-P 37.5 MG 37.5 MG t} 37.5 MG Vitamin B12 Vitamin B12 No QD Vitamin 2500 2500 B12 2500 Calcium Calcium No Calcium Citrate 500 Citrate 500 Citrate MG MG 500 MG Multivitami Multivitami No Multivitam n Gummies n Gummies in Gummies Adult - Adult - Adult - Vitamin B12 Vitamin B12 No QD Vitamin Common 2500 2500 B12 2500 Spirit - [facility] Ferrous Ferrous No 1{table BID Ferrous Com mon Sulfate 325 Sulfate 325 t} Sulfate Spirit (65 Fe) MG (65 Fe) MG 325 (65 - [facility] Fe) MG [facility] Slow Slow No 1{table QD Slow Common Release Release t} Release Spirit Iron 160 Iron 160 Iron 160 - C HI (50 Fe) MG (50 Fe) MG (50 Fe) MG [facility] Adipex-P Adipex-P No 1{capsu QD Adipex-P Common 37.5 MG 37.5 MG le} 37.5 MG [facility] Topamax 25 Topamax 25 No 1{table BID Topamax 25 Common MG MG t} MG [facility] Multivitami Multivitami No Multivitam Common n Gummies n Gummies in Gummies [facility] Adult - Adult - Adult - [facility] Calcium Calcium No Calcium Common Citrate 500 Citrate 500 Citrate Spirit MG MG 500 MG [facility] Adipex-P Adipex-P No 1{table QD Adipex-P Common 37.5 MG 37.5 MG t} 37.5 MG [facility] Vitamin B12 Vitamin B12 No QD Vitamin Common 2500 2500 B12 2500 [facility] Ferrous Ferrous No 1{table BID Ferrous Com mon Sulfate 325 Sulfate 325 t} Sulfate Spirit (65 Fe) MG (65 Fe) MG 325 (65 - [facility] Fe) MG [facility] Slow Slow No 1{table QD Slow Common Release Release t} Release Spirit Iron 160 Iron 160 Iron 160 - C HI (50 Fe) MG (50 Fe) MG (50 Fe) MG [facility] Adipex-P Adipex-P No 1{capsu QD Adipex-P Common 37.5 MG 37.5 MG le} 37.5 MG [facility] Topamax 25 Topamax 25 No 1{table BID Topamax 25 Common MG MG t} MG [facility] Multivitami Multivitami No Multivitam Common n Gummies n Gummies in Gummies [facility] Adult - Adult - Adult - - [facility] Phentermine Phentermine 2019- No Vinay Take 1/2 Common HCl HCl 07-24 Cruz tab Spirit 00:00 - [facility] :00 [facility] Vital Signs Vital Name Observation Time Observation Value Comments Source height 2022-11-10 60 [in_i] Common [facility] - 08:10:00 [facility] weight 2022-11-10 171 [lb_av] [facility] - 08:10:00 [facility] bmi 2022-11-10 33.39 kg/m2 Common [facility] - 08:10:00 [facility] blood pressure 2022-11-10 117 mm[Hg] [facility] - systolic 08:10:00 [facility] blood pressure 2022-11-10 75 mm[Hg] [facility] - diastolic 08:10:00 [facility] height 2022-10-09 60 [in_i] [facility] - 15:20:00 [facility] weight 2022-10-09 175.8 [lb_av] [facility] - 15:20:00 [facility] temperature 2022-10-09 97.2 [degF] [facility] - 15:20:00 [facility] bmi 2022-10-09 34.33 kg/m2 [facility] - 15:20:00 [facility] oximetry 2022-10-09 99 % [facility] - 15:20:00 [facility] respiratory rate 2022-10-09 18 /min Common Spir it - 15:20:00 [facility] blood pressure 2022-10-09 115 mm[Hg] [facility] - systolic 15:20:00 [facility] blood pressure 2022-10-09 71 mm[Hg] [facility] - diastolic 15:20:00 [facility] height 2022-09-08 60 [in_i] [facility] - 16:40:00 [facility] weight 2022-09-08 174 [lb_av] [facility] - 16:40:00 [facility] bmi 2022-09-08 33.98 kg/m2 [facility] - 16:40:00 [facility] height 2022-04-22 60 [in_i] [facility] - 07:40:00 [facility] weight 2022-04-22 170 [lb_av] [facility] - 07:40:00 [facility] temperature 2022-04-22 98 [degF] [facility] - 07:40:00 [facility] bmi 2022-04-22 33.2 kg/m2 [facility] - 07:40:00 [facility] height 2022-03-25 60 [in_i] [facility] - 16:40:00 [facility] weight 2022-03-25 171 [lb_av] [facility] - 16:40:00 [facility] temperature 2022-03-25 97.4 [degF] [facility] - 16:40:00 [facility] bmi 2022-03-25 33.39 kg/m2 [facility] - 16:40:00 [facility] height 2021-11-12 60 [in_i] [facility] - 11:40:00 [facility] weight 2021-11-12 163 [lb_av] [facility] - 11:40:00 [facility] bmi 2021-11-12 31.83 kg/m2 [facility] - 11:40:00 [facility] height 2021-10-09 60 [in_i] [facility] - 14:20:00 [facility] weight 2021-10-09 163 [lb_av] [facility] - 14:20:00 [facility] temperature 2021-10-09 98 [degF] [facility] - 14:20:00 [facility] bmi 2021-10-09 31.83 kg/m2 [facility] - 14:20:00 [facility] height 2021-09-17 60 [in_i] [facility] - 14:50:00 [facility] weight 2021-09-17 165.9 [lb_av] [facility] - 14:50:00 [facility] temperature 2021-09-17 98.1 [degF] [facility] - 14:50:00 [facility] bmi 2021-09-17 32.4 kg/m2 [facility] - 14:50:00 [facility] oximetry 2021-09-17 100 % [facility] - 14:50:00 [facility] respiratory rate 2021-09-17 18 /min Common Spir it - 14:50:00 [facility] blood pressure 2021-09-17 106 mm[Hg] [facility] - systolic 14:50:00 [facility] blood pressure 2021-09-17 63 mm[Hg] [facility] - diastolic 14:50:00 [facility] height 2021-07-26 60 [in_i] [facility] - 11:20:00 [facility] weight 2021-07-26 163 [lb_av] [facility] - 11:20:00 [facility] temperature 2021-07-26 98.5 [degF] [facility] - 11:20:00 [facility] bmi 2021-07-26 31.83 kg/m2 [facility] - 11:20:00 [facility] height 2021-07-15 60 [in_i] [facility] - 14:10:00 [facility] weight 2021-07-15 163 [lb_av] [facility] - 14:10:00 [facility] temperature 2021-07-15 97.5 [degF] [facility] - 14:10:00 [facility] bmi 2021-07-15 31.83 kg/m2 [facility] - 14:10:00 [facility] height 2021-06-05 60 [in_i] [facility] - 08:00:00 [facility] weight 2021-06-05 164 [lb_av] [facility] - 08:00:00 [facility] temperature 2021-06-05 97 [degF] [facility] - 08:00:00 [facility] bmi 2021-06-05 32.03 kg/m2 [facility] - 08:00:00 [facility] Systolic (mm Hg) 2023-05-05 [facility] rmann 20:45:00 Diastolic (mm Hg) 2023-05-05 [facility] ermann 20:45:00 Heart Rate 2023-05-05 Marcelina Oliver n 20:45:00 Height 2023-05-05 5 [ft_i] Marcelina Oliver n 20:45:00 Weight 2023-05-05 Marcelina Oliver n 20:45:00 BMI Calculated 2023-05-05 Marcelina Zhao mundo 20:45:00 Systolic (mm Hg) 2021-02-13 [facility] rmann 21:22:00 Diastolic (mm Hg) 2021-02-13 [facility] 21:22:00 Heart Rate 2021-02-13 [facility] 21[facility]22:00 Respitory Rate 2021-02-13 [facility] 21:22:00 Weight 2021-02-13 [facility] 21:22:00 Systolic (mm Hg) 2020-11-07 [facility] 19:31:00 Diastolic (mm Hg) 2020-11-07 [facility] ermann 19:31:00 Heart Rate 2020-11-07 [facility] 19:31:00 Respitory Rate 2020-11-07 [facility] 19:31:00 Height 2020-11-07 149.86 cm [facility] 19:31:00 Weight 2020-11-07 [facility] 19:31:00 BMI Calculated 2020-11-07 [facility] 19:31:00 Systolic (mm Hg) 2020-08-08 [facility] 14:17:00 Diastolic (mm Hg) 2020-08-08 [facility] ermann 14:17:00 Heart Rate 2020-08-08 [facility] 14:17:00 Respitory Rate 2020-08-08 [facility] 14:17:00 Height 2020-08-08 152.4 cm [facility] 14:17:00 Weight 2020-08-08 [facility] 14:17:00 BMI Calculated 2020-08-08 [facility] 14:17:00 Systolic (mm Hg) 2020-06-22 [facility] rmann 18:35:00 Diastolic (mm Hg) 2020-06-22 [facility] H ermann 18:35:00 Heart Rate 2020-06-22 [facility] 18:35:00 Respitory Rate 2020-06-22 [facility] 18:35:00 Height 2020-06-22 152.4 cm [facility] 18:35:00 Weight 2020-06-22 [facility] 18:35:00 BMI Calculated 2020-06-22 [facility] 18:35:00 BP Systolic 2019-02-25 110 mm[Hg] Location: LUE; [facility] 09:16:00 Position: Sitting BP Diastolic 2019-02-25 71 mm[Hg] Location: LUE; [facility] 09:16:00 Position: Sitting Height 2019-02-25 60 [in_us] [facility] 09:16:00 Weight 2019-02-25 172 [lb_av] [facility] 09:16:00 Body Mass Index 2019-02-25 33.59 kg/m2 [facility] Cal[facility] 09:16:00 Temperature 2019-02-25 98 [degF] Method: Oral [facility] 09:16:00 Heart Rate 2019-02-25 66 /min [facility] 09:16:00 Temperature Oral 2016-01-06 98.0 F [facility] (F) 22:54:00 Heart Rate 2016-01-06 [facility] 22:54:00 Respitory Rate 2016-01-06 [facility] 22:54:00 Systolic (mm Hg) 2016-01-06 [facility] 22:54:00 Diastolic (mm Hg) 2016-01-06 [facility] 22:54:00 Temperature Oral 2016-01-06 97.8 F [facility] (F) 17:52:00 Respitory Rate 2016-01-06 [facility] 17:52:00 Heart Rate 2016-01-06 [facility] 17:52:00 Systolic (mm Hg) 2016-01-06 [facility] 17:52:00 Diastolic (mm Hg) 2016-01-06 [facility] 17:52:00 Systolic (mm Hg) 2016-01-06 [facility] 14:46:00 Diastolic (mm Hg) 2016-01-06 [facility] 14:46:00 Heart Rate 2016-01-06 [facility] 14:46:00 Respitory Rate 2016-01-06 [facility] 14:46:00 Temperature Oral 2016-01-06 97.9 F [facility] (F) 14:46:00 Height 2016-01-06 152.4 cm [facility] 02:16:00 Weight 2016-01-06 [facility] 02:16:00 BMI Calculated 2016-01-06 [facility] 02:16:00 Height 2016-01-05 152.4 cm [facility] 18:43:00 BMI Calculated 2016-01-05 [facility] 18:43:00 Weight 2016-01-05 [facility] 18:43:00 Systolic (mm Hg) 2016-01-01 [facility] 18:00:00 Diastolic (mm Hg) 2016-01-01 [facility] 18:00:00 Temperature Oral 2016-01-01 98.0 F [facility] (F) 18:00:00 Respitory Rate 2016-01-01 [facility] 18:00:00 Heart Rate 2016-01-01 [facility] 18:00:00 Systolic (mm Hg) 2016-01-01 [facility] 14:28:00 Diastolic (mm Hg) 2016-01-01 [facility] 14:28:00 Respitory Rate 2016-01-01 [facility] 14:28:00 Heart Rate 2016-01-01 [facility] 14:28:00 Temperature Oral 2016-01-01 97.8 F [facility] (F) 14:28:00 Heart Rate 2016-01-01 [facility] 11:20:00 Temperature Oral 2016-01-01 98.3 F [facility] (F) 11:20:00 Systolic (mm Hg) 2016-01-01 [facility] 11:20:00 Diastolic (mm Hg) 2016-01-01 [facility] 11:20:00 Respitory Rate 2016-01-01 [facility] 11:20:00 BMI Calculated 2015-12-28 [facility] 16:53:00 Weight 2015-12-28 [facility] 16:53:00 Height 2015-12-28 152.4 cm [facility] 16:53:00 Weight 2015-12-27 [facility] 11:55:00 BMI Calculated 2015-12-27 [facility] 11:55:00 Height 2015-12-27 152.4 cm [facility] 11:55:00 Height 2015-12-27 152.4 cm [facility] 02:41:00 Weight 2015-12-27 [facility] 02:41:00 BMI Calculated 2015-12-27 [facility] 02:41:00 Procedures Procedure Date / Time Performed Performing Clinician Sourc e lap gastric sleeve [facility] Cholecyst[facility] Encounters Start End Encounter Admission Attending Care Care Encounter Source Date/Time Date/Time Type Type Clinicians Facility Department ID 2023-06-01 Outpatient Cruz, [facility] [id number] Common 09:11:00 [facility] [address] [facility] 2023-03-31 Outpatient Cruz, [facility] [id number] Common 15:53:00 [facility] [address] [facility] 2023-03-20 Outpatient Cruz, STLMLC STLMLC [id number] Common 09:04:00 Vinay [id number] [facility] 2022-11-06 Outpatient Cruz, STLMLC STLMLC [id number] Common 16:01:00 Vinay [id number] [facility] 2022-10-07 Outpatient Cruz, STLMLC STLMLC [id number] Common 15:18:00 Vinay [id number] [facility] 2022-09-02 Outpatient Cruz, STLMLC STLMLC [id number] Common 09:21:01 Vinay [id number] [facility] 2022-03-18 Outpatient [facility] [id number] 16:11:22 [id number] [facility] 2021-12-25 Outpatient Cruz, STLMLC STLMLC [id number] Common 13:38:48 Vinay [id number] [facility] 2021-12-25 Outpatient Cruz, STLMLC STLMLC [id number] Common 12:48:47 Vinay [id number] [facility] 2021-12-25 Outpatient Cruz, STLMLC STLMLC [id number] Common 12:36:22 Vinay [id number] [facility] 2021-12-25 Outpatient Cruz, STLMLC STLMLC [id number] Common 12:19:17 Vinay [id number] [facility] 2021-12-25 Outpatient Cruz, STLMLC STLMLC [id number] Common 11:41:43 Vinay [id number] [facility] 2021-12-25 Outpatient Cruz, STLMLC STLMLC [id number] Common 11:22:19 Vinay [id number] [facility] 2021-12-25 Outpatient Cruz, STLMLC STLMLC [id number] Common 11:13:20 Vinay [id number] [facility] 2021-12-25 Outpatient Cruz, STLMLC STLMLC [id number] Common 11:12:48 Vinay [id number] [facility] 2023-06-16 2023-06-16 Ambulatory [facility] MNA [id number] Memoria 15:15:00 15:15:00 Pre-Reg Neurology 09 taqueria Huertas 2023-06-16 2023-06-16 Outpatient [facility]IE MHIE [id number] [facility]oria 10:15:00 10:15:00 09 taqueria Huertas 2023-06-16 2023-06-16 Outpatient Justin, MHMISCHER MHMISCHER [id number] 10:15:00 10:15:00 Eric 09 Mejia 2023-05-05 2023-05-06 Outpatient [facility]IE MNA [id number] [facility]oria 20:45:00 04:59:59 Neurology 08 taqueria Huertas 2023-05-05 2023-05-05 Outpatient Justin, MHMISCHER MHMISCHER [id number] 15:45:00 23:59:59 Eric 08 Mejia 2023-05-05 2023-05-05 Outpatient MHIE MHIE [id number] Memoria 15:45:00 15:45:00 08 taqueria Huertas 2022-11-10 2022-11-10 OFFICE STLMLC STLMLC [id number] Co mmon 00:00:00 00:00:00 VISIT EST Spir it PT LEVEL 3 - [facility] 2022-10-09 2022-10-09 PREV VISIT STLMLC STLMLC [id number] Common 00:00:00 00:00:00 EST AGE Spirit 40-64 - [facility] 2022-09-08 2022-09-08 OFFICE STLMLC STLMLC [id number] Co mmon 00:00:00 00:00:00 VISIT EST Spir it PT LEVEL 3 - [facility] 2022-04-22 2022-04-22 OFFICE STLMLC STLMLC [id number] Co mmon 00:00:00 00:00:00 VISIT EST Spir it PT LEVEL 3 - [facility] 2022-03-25 2022-03-25 OFFICE STLMLC STLMLC [id number] Co mmon 00:00:00 00:00:00 VISIT EST Spir it PT LEVEL 3 - [facility] 2022-03-21 2022-03-21 (WEB) STLMLC STLMLC [id number] Co mmon 00:00:00 00:00:00 [facility] 2021-12-12 2021-12-12 (WEB) STLMLC STLMLC [id number] Co mmon 00:00:00 00:00:00 [facility] 2021-11-12 2021-11-12 OFFICE STLMLC STLMLC [id number] Co mmon 00:00:00 00:00:00 VISIT EST Spir it PT LEVEL 3 [facility] 2021-11-12 2021-11-12 (TEL) STLMLC STLMLC [id number] Co mmon 00:00:00 00:00:00 [facility] 2021-10-14 2021-10-14 (TEL) STLMLC STLMLC [id number] Co mmon 00:00:00 00:00:00 [facility] 2021-10-09 2021-10-09 OFFICE STLMLC STLMLC [id number] Co mmon 00:00:00 00:00:00 VISIT EST Spir it PT LEVEL 3 [facility] 2021-09-17 2021-09-17 PREV VISIT STLMLC STLMLC [id number] Common 00:00:00 00:00:00 EST AGE [facility] 18-39 [facility] 2021-07-26 2021-07-26 OFFICE STLMLC STLMLC [id number] Co mmon 00:00:00 00:00:00 VISIT EST Spir it PT LEVEL 3 [facility] 2021-07-25 2021-07-25 (TEL) STLMLC STLMLC [id number] Co mmon 00:00:00 00:00:00 [facility] 2021-07-15 2021-07-15 OFFICE STLMLC STLMLC [id number] Co mmon 00:00:00 00:00:00 VISIT EST Spir it PT LEVEL 3 [facility] 2021-07-15 2021-07-15 (TEL) STLMLC STLMLC [id number] Co mmon 00:00:00 00:00:00 [facility] 2021-06-05 2021-06-05 OFFICE STLMLC STLMLC [id number] Co mmon 00:00:00 00:00:00 VISIT [facility] 4 [facility] 2021-05-16 2021-05-16 Outpatient MHIE MHIE [id number] Memoria 15:00:00 15:00:00 07 l Aleksandar 2021-04-05 2021-04-05 Outpatient STLMLC STLMLC [id number] Common 00:00:00 00:00:00 [facility] 2021-04-05 2021-04-05 Outpatient STLMLC STLMLC [id number] Common 00:00:00 00:00:00 [facility] 2021-03-30 2021-03-30 Laboratory Lab, Adc Fam Pob I [facility] 1.2. [id number] Univers 15:30:55 15:50:55 Only [facility] [id number] [facility] [id number] Lenard as Professio [phone] [address] Office [facility] 2021-03-30 2021-03-30 Outpatient [facility] [id number] Univers 15:40:00 15:40:00 [facility] 2021-03-07 2021-03-07 Outpatient STLMLC STLMLC [id number] Common 00:00:00 00:00:00 [facility] 2021-02-13 2021-02-14 Outpatient nullFlavo MNA [id number] Memoria 20:45:00 04:59:59 r Neurology 06 l Yolanda Huertas 2021-02-13 2021-02-13 Outpatient ELSIE AndersonMISCHER MHMISCHER [id number] 15:45:00 23:59:59 Eric 06 Mejia 2021-02-13 2021-02-13 Outpatient MHIE MHIE [id number] Memoria 15:45:00 15:45:00 06 l Aleksandar 2020-12-18 2020-12-18 Outpatient STLMLC STLMLC [id number] Common 00:00:00 00:00:00 [facility] 2020-12-18 2020-12-18 Outpatient STLMLC STLMLC [id number] Common 00:00:00 00:00:00 [facility] 2020-12-07 2020-12-07 Outpatient STLMLC STLMLC [id number] Common 00:00:00 00:00:00 [facility] 2020-12-07 2020-12-07 Outpatient STLMLC STLMLC [id number] Common 00:00:00 00:00:00 [facility] 2020-12-05 2020-12-05 Laboratory Lab, Adc Fam Pob I [facility] 1.2. [id number] [id number] Univers 17:40:18 18:00:18 Isabelle Khan [facility] [id number] ity [facility] [id number] Lenard as Professio [phone] [address] Office Building One 2020-12-05 2020-12-05 Outpatient Demetrio KHAN [facility] [id number] Univers 18:00:00 18:00:00 RENUKA ity [facility] 2020-12-05 2020-12-05 Letter Doctor IHSAN [id number] Univers 00:00:00 00:00:00 (Out) Unassigned, [place] [id number] [facility] [id number] Lenard as [phone] [address] 2020-11-07 2020-11-08 Outpatient nullFlavo MNA [id number] Memoria 19:15:00 05:59:59 r Neurology 05 l [place] Hu[place] 2020-11-07 2020-11-07 Outpatient Justin MHMISCHER MHMISCHER [id number] 13:15:00 23:59:59 Eric 05 Mejia 2020-11-07 2020-11-07 Outpatient MHIE MHIE [id number] Memoria 13:15:00 13:15:00 05 l Aleksandar 2020-10-11 2020-10-11 Outpatient STLMLC STLMLC [id number] Common 00:00:00 00:00:00 [facility] 2020-09-17 2020-09-17 Outpatient STLMLC STLMLC [id number] Common 00:00:00 00:00:00 [facility] 2020-08-28 2020-08-28 Outpatient STLMLC STLMLC [id number] Common 00:00:00 00:00:00 [facility] 2020-08-24 2020-08-24 Outpatient STLMLC STLMLC [id number] Common 00:00:00 00:00:00 [facility] 2020-08-24 2020-08-24 Outpatient STLMLC STLMLC [id number] Common 00:00:00 00:00:00 [facility] 2020-08-08 2020-08-09 Outpatient nullFlavo MNA [id number] Memoria 14:00:00 04:59:59 r Neurology 04 l Yolanda Sunol 2020-08-08 2020-08-08 Outpatient JACOB Anderson MISCHER [id number] 09:00:00 23:59:59 Eric Maco Ba 2020-08-08 2020-08-08 Outpatient MHIE MHIE [id number] Memoria 09:00:00 09:00:00 04 l Sunol 2020-07-23 2020-07-23 [facility] [id number] Common 15:25:00 15:25:00 [place] [address] [facility] 2020-07-23 2020-07-23 [facility] [id number] Common 15:00:00 15:00:00 [place] [address] [facility] 2020-06-26 2020-06-26 [facility] [id number] Common 06:44:00 06:44:00 [place] [address] [facility] 2020-06-22 2020-06-23 Outpatient nullFlavo MNA [id number] Memoria 18:45:00 04:59:59 r Neurology 03 l Yolanda Zhaoann 2020-06-22 2020-06-22 Outpatient JACOB Anderson MISCHER [id number] 13:45:00 23:59:59 Eric Alex Ba 2020-06-22 2020-06-22 Ambulatory nullFlavo MNA [id number] Memoria 18:45:00 18:45:00 Pre-Reg r Neurology 00 l [place] Aleksandar 2020-06-22 2020-06-22 Ambulatory nullFlavo MNA [id number] Memoria 18:45:00 18:45:00 Pre-Reg r Neurology 01 l [place] Aleksandar 2020-06-22 2020-06-22 Ambulatory nullFlavo MNA [id number] Memoria 18:45:00 18:45:00 Pre-Reg r Neurology 02 l [place] Sunol 2020-06-22 2020-06-22 [facility] [id number] Common 14:51:00 14:51:00 t [facility] [address] [facility] 2020-06-22 2020-06-22 Outpatient MHIE MHIE [id number] Memoria 13:45:00 13:45:00 01 l Sunol 2020-06-22 2020-06-22 Outpatient MHIE MHIE [id number] Memoria 13:45:00 13:45:00 02 l Sunol 2020-06-22 2020-06-22 Outpatient MHIE MHIE [id number] Memoria 13:45:00 13:45:00 03 l Aleksandar 2020-06-22 2020-06-22 Outpatient MHIE MHIE [id number] Memoria 13:45:00 13:45:00 00 l Sunol 2020-06-22 2020-06-22 Outpatient Krell, MHMISCHER MHMISCHER [id number] 13:45:00 13:45:00 Eric 02 [facility] 2020-06-22 2020-06-22 Outpatient Krell, MHMISCHER MHMISCHER [id number] 13:45:00 13:45:00 Eric 00 [facility] 2020-06-22 2020-06-22 Outpatient Krell, MHMISCHER MHMISCHER [id number] 13:45:00 13:45:00 Eric [facility] 2020-05-30 2020-05-30 [facility] [id number] Common 16:00:00 16:00:00 [address] [employer] [address] [facility] 2020-05-01 2020-05-01 Out[facility] [id number] Common 13:00:00 13:00:00 [place] [address] [facility] 2020-04-16 2020-04-16 Out[facility] [id number] Common 15:00:00 15:00:00 [place] [address] [facility] 2020-02-08 2020-02-08 Out[facility] [id number] Common 15:45:00 15:45:00 [place] [address] [facility] 2019-02-25 2019-02-25 Appointmen LUIS ENRIQUE THORNTON [facility] [id number] [place] 08:45:00 08:45:00 t; ANKITA THORNTON M.D. Surgery Jose Migueli Mario LUCIANO Specialty ans 2018-11-19 2019-02-18 [facility] [id number] Memoria 16:30:00 04:59:59 n Patient r [facility] 41 l Sunol 2018-11-19 2019-02-17 Outpatient Physician, 2.16.840. [id number] . [id number] 10:30:00 23:59:59 Non [id number] Associated 3.615.54 5.54 2016-02-13 2016-02-13 Bedded nullFlavo [facility] [id number] Memoria 13:25:00 15:00:00 Outpatient r Sunol 02 [facility] 2016-02-13 2016-02-13 Outpatient Norberto [facility] [id number] 08:25:00 10:00:00 Ankita Guardado 2016-01-05 2016-01-06 OBS nullFlavo [facility] [id number] Memoria 18:30:00 22:40:00 Observatio r Sunol 01 l n Patient [facility] 2016-01-05 2016-01-06 Outpatient Norberto [facility] [id number] 12:30:00 16:40:00 Ankita Guardado 2015-12-27 2016-01-01 Inpatient nullFlavo [facility] [id number] Memoria 02:32:00 18:40:00 r Sunol 00 [facility] 2015-12-26 2016-01-01 Outpatient Norberto [facility] [id number] 20:32:00 12:40:00 [place] [address] Results Test Description Test Time Test Comments Results Result Comments Source Lipid Panel With LDL/HDL Ratio 2022-10-09 00:00:00 Test Item Value Reference Range Interpretation Comme nts Cholesterol, Total (test code 159 mg/dL See_Comment [Automated message] The system = 3-3) which generated this result transmitted ref erence range: 100-199 mg/dL. The reference range was not u sed to interpret this result as normal/abnormal. Triglycerides (test code = 59 mg/dL See_Comment [Automated message] The system 1-8) which generated this result transmitted ref erence range: 0-149 mg/dL. Th e reference range was not used to interpret this result as rosario l/abnormal. HDL Cholesterol (test code = 82 mg/dL See_Comment [Automated message] The system 9) which generated this result transmitted ref erence range: >39 mg/dL. The refe rence range was not used to int erpret this result as rosario l/abnormal. UA/M w/rflx Culture, [id number] 00:00:00 Test Item Value Reference Range Interpretation Comments Specific [place] (test 1.019 1.005-1.030 code = 2965-2) pH (test code = 8.0 5.0-7.5 H 5803-2) Urine-Color (test code Yellow Yellow = 5778-6) Appearance (test code Turbid Clear A = 5767-9) WBC Esterase (test Negative Negative code = 5799-2) Protein (test code = Negative Negative/Trace 41676-8) Glucose (test code = Negative Negative 2349-9) Ketones (test code = Negative Negative 2514-8) Occult Blood (test Negative Negative code = 5794-3) Bilirubin (test code = Negative Negative 5770-3) Urobilinogen,Semi-Qn 1.0 mg/dL See_Comment [Autom ated message] (test code = 59412-0) The sy stem which generated this result transmitted ref erence range: 0.2-1.0 mg/dL. The reference r cameron was not used to interpret this result as normal/abnor mal. Nitrite, Urine (test Negative Negative code = 5802-4) Microscopic See below: Examination (test code = 54327-5) Urinalysis Reflex (test code = UNLOINC) Hemoglobin [id number] 00:00:00 Test Item Value Reference Range Interpretation Comments Hemoglobin A1c (test 5.3 % See_Comment [Autom ated message] The code = 4548-4) system which generated this result tra nsmitted reference range : 4.8-5.6 %. The referenc e range was not used to interpret this result as normal/abnormal . Comp. Metabolic Panel (14) (CMP)2022-10-09 00:00:00 Test Item Value Reference Range Interpretation Comments Glucose (test code = 82 mg/dL See_Comment [Autom ated message] 1745-7) The system [employer] generated this result transmitted ref erence range: 70-99 mg /dL. The reference r cameron was not used to interpret this result as normal/abnor mal. BUN (test code = 14 mg/dL See_Comment [Automated message] 3094-0) The system [employer] generated this result transmitted ref erence range: 6-24 mg/ dL. The reference r cameron was not used to interpret this result as normal/abnor mal. Creatinine (test code 0.70 mg/dL See_Comment [Auto mated message] = 2160-0) The system [employer] generated this result transmitted ref erence range: 0.57-1.0 0 mg/dL. The refe rence range was not u sed to interpret this result as normal/abnor mal. BUN/Creatinine Ratio 20 9-23 (test code = 3097-3) Sodium (test code = 138 mmol/L See_Comment [Automa iraj message] 9291-2) The system [employer] generated this result transmitted ref erence range: 134-144 mmol/L. The ref erence range was not u sed to interpret this result as normal/abnor mal. Potassium (test code = 4.7 mmol/L See_Comment [Aut omated message] 1148-3) The system [employer] generated this result transmitted ref erence range: 3.5-5.2 mmol/L. The ref erence range was not u sed to interpret this result as normal/abnor mal. Chloride (test code = 101 mmol/L See_Comment [Auto mated message] ) The system [facility] generated this result transmitted ref erence range: 96-106 m mol/L. The reference r cameron was not used to interpret this result as normal/abnor mal. Carbon Dioxide, Total 22 mmol/L See_Comment [Auto mated message] (test code = 2028-07) The s tem which generated this result transmitted ref erence range: 20-29 mm ol/L. The reference r cameron was not used to interpret this result as normal/abnor mal. Calcium (test code = 9.3 mg/dL See_Comment [Autom ated message] 98285-5) The system [facility] generated this result transmitted ref erence range: 8.7-10.2 mg/dL. The refe rence range was not u sed to interpret this result as normal/abnor mal. Protein, Total (test 7.2 g/dL See_Comment [Autom ated message] code = 2815-2) The system [facility] generated this result transmitted ref erence range: 6.0-8.5 g/dL. The reference r cameron was not used to interpret this result as normal/abnor mal. Albumin (test code = 4.5 g/dL See_Comment [Autom ated message] 1751-7) The system [facility] generated this result transmitted ref erence range: 3.8-4.8 g/dL. The reference r cameron was not used to interpret this result as normal/abnor mal. Globulin, Total (test 2.7 g/dL See_Comment [Auto mated message] code = 99284-4) The system [facility] generated this result transmitted ref erence range: 1.5-4.5 g/dL. The reference r cameron was not used to interpret this result as normal/abnor mal. A/G Ratio (test code = 1.7 1.2-2.2 9-0) Bilirubin, Total (test 0.3 mg/dL See_Comment [Aut omated message] code = 1974-) The system [facility] generated this result transmitted ref erence range: 0.0-1.2 mg/dL. The reference r cameron was not used to interpret this result as normal/abnor mal. Alkaline Phosphatase 98 IU/L See_Comment [Autom ated message] (test code = 6768-6) The sys tem which generated this result transmitted ref erence range: 44-121 I U/L. The reference r cameron was not used to interpret this result as normal/abnor mal. AST (SGOT) (test code 17 IU/L See_Comment [Auto mated message] = 1920-8) The system [employer] generated this result transmitted ref erence range: 0-40 IU/ L. The reference range was not used to int erpret this result as normal/abnormal . ALT (SGPT) (test code 10 IU/L See_Comment [Auto mated message] = 1742-6) The system whic h generated this result transmitted ref erence range: 0-32 IU/ L. The reference range was not used to int erpret this result as normal/abnormal . Uric Acid, [id number] 00:00:00 Test Item Value Reference Range Interpretation Comments Uric Acid (test 2.8 mg/dL See_Comment [Automated message] The code = 3084-1) system which generated this result tra nsmitted reference range : 2.6-6.2 mg/dL. The refe rence range was not u sed to interpret this result as normal/abnormal . CBC With Differential/[id number] 00:00:00 Test Item Value Reference Range Interpretation Comments WBC (test code = 9.4 x10E3/uL See_Comment [Automated 9690-2) message] The sy stem which generated this result transmitted reference range : 3.4-10.8 x10E3/ uL. The reference r cameron was not used to interpret this result as normal/abnormal . RBC (test code = 4.91 x10E6/uL See_Comment [Automate d 369-8) message] The sy stem which generated this result transmitted reference range : 3.77-5.28 x10E6 /uL. The reference r cameron was not used to interpret this result as normal/abnormal . Hemoglobin (test code 12.3 g/dL See_Comment [Auto mated = 608-7) message] The sy stem which generated this result transmitted reference range : 11.1-15.9 g/dL. The reference range was not used to interpret this result as normal/abnormal . Hematocrit (test code 38.4 % See_Comment [Auto mated = 4544-3) message] The sy stem which generated this result transmitted reference range : 34.0-46.6 %. Th e reference range was not used to interpret this result as normal/abnormal . MCV (test code = 78 fL See_Comment L [Automated 787-2) message] The sy stem which generated this result transmitted reference range : 79-97 fL. The reference range was not used to interpret this result as normal/abnormal . MCH (test code = 25.1 pg See_Comment L [Automated 785-6) message] The sy stem which generated this result transmitted reference range : 26.6-33.0 pg. T he reference range was not used to interpret this result as normal/abnormal . MCHC (test code = 32.0 g/dL See_Comment [Automate d 786-4) message] The sy stem which generated this result transmitted reference range : 31.5-35.7 g/dL. The reference range was not used to interpret this result as normal/abnormal . RDW (test code = 14.5 % See_Comment [Automated 788-0) message] The sy stem which generated this result transmitted reference range : 11.7-15.4 %. Th e reference range was not used to interpret this result as normal/abnormal . Platelets (test code 447 x10E3/uL See_Comment [Autom ated = 777-3) message] The sy stem which generated this result transmitted reference range : 150-450 x10E3/u L. The reference r cameron was not used to interpret this result as normal/abnormal . Neutrophils (test 60 % Not Estab. % code = 770-8) Lymphs (test code = 31 % Not Estab. % 736-9) Monocytes (test code 8 % Not Estab. % = 5905-5) Eos (test code = 1 % Not Estab. % 713-8) Basos (test code = 0 % Not Estab. % 706-2) Immature Cells (test code = UNLOINC) Neutrophils 5.6 x10E3/uL See_Comment [Automated (Absolute) (test code messag e] The system = 751-8) which generated this result transmitted reference range : 1.4-7.0 x10E3/u L. The reference r cameron was not used to interpret this result as normal/abnormal . Lymphs (Absolute) 2.9 x10E3/uL See_Comment [Automate d (test code = 731-0) message] The system which generated this result transmitted reference range : 0.7-3.1 x10E3/u L. The reference r cameron was not used to interpret this result as normal/abnormal . Monocytes(Absolute) 0.8 x10E3/uL See_Comment [Automa iraj (test code = 742-7) message] The system which generated this result transmitted reference range : 0.1-0.9 x10E3/u L. The reference r cameron was not used to interpret this result as normal/abnormal . Eos (Absolute) (test 0.1 x10E3/uL See_Comment [Autom ated code = 711-2) message] The s ystem which generated this result transmitted reference range : 0.0-0.4 x10E3/u L. The reference r cameron was not used to interpret this result as normal/abnormal . Baso (Absolute) (test 0.0 x10E3/uL See_Comment [Auto mated code = 704-7) message] The s ystem which generated this result transmitted reference range : 0.0-0.2 x10E3/u L. The reference r cameron was not used to interpret this result as normal/abnormal . Immature Granulocytes 0 % Not Estab. % (test code = 15604-2) Immature Grans (Abs) 0.0 x10E3/uL See_Comment [Autom ated (test code = 39788-2) messag e] The system which generated this result transmitted reference range : 0.0-0.1 x10E3/u L. The reference r cameron was not used to interpret this result as normal/abnormal . NRBC (test code = 97626-2) Hematology Comments: (test code = 66423-5) TSH reflex to [id number] 00:00:00 Test Item Value Reference Range Interpretation Comments TSH (test code = 1.600 uIU/mL See_Comment [Automated message] The 52071-6) system which ge nerated this result tra nsmitted reference range : 0.450-4.500 uIU /mL. The reference range was not used to interpr et this result as normal/abnormal . ANEMIA [id number] 20:52:00 Test Item Value Reference Range Interpretation Comments Vitamin B12 Lvl (test code = Vitamin 923 277-1097 B12 Lvl) [facility] [id number] 20:52:00 Test Item Value Reference Range Interpretation Comments Total CK (test code = Total CK) 41 29-143 [facility] [id number] 20:52:00 Test Item Value Reference Range Interpretation Comments VITAMIN B1 (THIAMINE) WHOLE BLOOD (test 140 78-185 code = VITAMIN B1 (THIAMINE) WHOLE BLOOD) [facility] [id number] 20:52:00 Test Item Value Reference Range Interpretation Comments Sed Rate (test code = Sed Rate) 9 [id number] 20:52:00 Test Item Value Reference Range Interpretation Comments ANCA (test code = ANCA) NEGATIVE [facility] CenterCaerabhXDVOKTZHVH3710-87-19 20:52:00 Test Item Value Reference Range Interpretation Comments C-REACTIVE PROTEIN (test code = 7.6 C-REACTIVE PROTEIN) [facility] CenterL[id number] 20:52:00 Test Item Value Reference Range Interpretation Comments RICO Ser Interp (test code = RICO SEE COMMENT Ser Interp) [facility] [id number] 20:52:00 Test Item Value Reference Range Interpretation Comments SS-A (Ro) Ab (test code = SS-A (Ro) <1.0 NEG Ab) [facility] [id number] 20:52:00 Test Item Value Reference Range Interpretation Comments SS-B (La) Ab (test code = SS-B (La) <1.0 NEG Ab) [facility] [id number] 20:52:00 Test Item Value Reference Range Interpretation Comments Copper Lvl (test code = Copper Lvl) 245 70-175 [facility] CenterXfltquqTJBIK2365-79-42 20:52:00 Test Item Value Reference Range Interpretation Comments Zinc Lvl (test code = Zinc Lvl) 81 60-130 [facility]] CBC (INCLUDES DIFF/PLT)2019-02-25 10:35:01 Test Item Value Reference Range Interpretation Comments WBC (test code = 6690-2) 6.4 {K/CMM} 3.7-10.4 RBC (test code = 789-8) 4.72 {M/CMM} 4.20-5.40 Hgb; Below Low Threshold (test 11.4 g/dl 12.0-16.0 code = 718-7) Hct; Below Low Threshold (test 35.4 % 36.0-48.0 code = 70276-7) MCV; Below Low Threshold (test 74.9 fL 80.0-98.0 code = 787-2) MCH; Below Low Threshold (test 24.1 pg 27.0-31.0 code = 785-6) MCHC (test code = 786-4) 32.1 g/dl 32.0-36.0 RDW; Above High Threshold (test 17.6 % 11.5-14.5 code = 788-0) Platelet (test code = 38617-1) 378 {K/CMM} 133-450 Mean Platelet Volume (test code 8.5 fL 7.4-10.4 = 75506-9) [facility][QL] [id number] 10:35:01 Test Item Value Reference Range Interpretation Comments Segmented Neutrophils (test code 63.8 % 45.0-75.0 = 53245-3) Monocytes (test code = 52886-8) 6.2 % 2.0-12.0 Lymphocytes (test code = 54415-6) 28.9 % 20.0-40.0 Eosinophils (test code = 30686-9) 0.5 % 0.0-4.0 Basophils (test code = 706-2) 0.6 % 0.0-1.0 Segs-Bands # (test code = 4.1 {K/CMM} 1.5-8.1 41285-7) Lymphocytes # (test code = 1.9 {K/CMM} 1.0-5.5 58274-8) Monocytes # (test code = 29989-6) 0.4 {K/CMM} 0.0-0.8 Microcyte (test code = Microcyte) 1+ None Seen A [facility][QL] CMP [id number] 10:35:01 Test Item Value Reference Range Interpretation Comments Sodium Level 140 {mEq/l} 135-145 (test code = 2951-2) Potassium Level 4.1 {mEq/l} 3.5-5.1 (test code = 2823-3) Chloride Level 105 {mEq/l} 95-109 (test code = 5-0) Carbon Dioxide 25 {mEq/l} 24-32 (test code = 2027-9) AGAP (test code = 14.1 {mEq/l} 10.0-20.0 72730-5) Glucose Lvl (test 80 mg/dl 70-99 Adult refe rence range code = 2345-7) values reflec t the clinical guidel inesof the [employer] Di[employer] es [employer]. Creatinine Lvl 0.80 mg/dl 0.50-1.40 (test code = 2160-0) Blood Urea 15 mg/dl 7-22 Nitrogen (test code = 3094-0) BUN/Creatinine 19 6-25 Ratio (test code = 3097-3) Total Protein 7.5 g/dl 6.4-8.4 (test code = 2885-2) Albumin Lvl (test 3.7 g/dl 3.5-5.0 code = 1751-7) Globulin (test 3.8 g/dl 2.7-4.2 code = 09484-0) A/G Ratio (test 1.0 0.7-1.6 code = 1759-0) Calcium Level 9.9 mg/dl 8.5-10.5 Total (test code = 20281-0) ALT (test code = 14 u/l 0-65 1743-4) AST (test code = 18 u/l 0-37 21426-7) Bili Total (test 0.4 mg/dl 0.2-1.3 code = 1974-2) Alk Phos (test 54 u/l 39-136 code = 1783-0) eGFR (test code = 95 The eGFR i s calculated 01735-0) {ML/MIN/1.7} using the CKD-E PI formula. In mos t young, healthyindividu als the eGFR will be >9 0 mL/min/1.73m2. The eGFR declines with a ge. AneGFR of 60-89 may be normal in some population s, particularly th e elderly, forwhom the CKD -EPI formula has not been extensively gwen idated. Use of the eGFR isnot recommended in the following populations:Ind ividuals with unstable c reatinine concentrations, including patient s and those with seri ous co-morbid conditions.Luda ents with extremes in mus samantha mass or diet.The melchor a above are obtained fr om the National Kidney Disease Education [facility](NKDEP) which evens jose recommends that when the eGFR is used in patientswith ex tremes of body mass index for purposes of bronwyn g dosing, the eGFR should be multiplied by t he estimated BMI. [facility][QL] IRON AND TOTAL IRON BINDING [id number] 10:35:01 Test Item Value Reference Range Interpretation Comments Iron (test code = 2498-4) 57 ug/dL 30-160 % [place]; Below Low Threshold 10 % 12-57 (test code = 2502-3) TIBC; Above High Threshold (test 581 ug/dL 228-428 code = 2500-7) UIBC (test code = UIBC) 524 ug/dL 110-370 [facility][QL] LIPID [id number] 10:35:01 Test Item Value Reference Range Interpretation Comments Chol (test code = 2093-3) 173 mg/dl <=199 Trig (test code = 2571-8) 54 mg/dl <=149 HDL Cholesterol (test code = 73 mg/dl >=61 2085-9) CHD Risk; Below Low Threshold (test 2.37 3.90-5.80 code = 73302-8) LDL (test code = 43325-1) 89 mg/dl <=99 VLDL (test code = VLDL) 11 [facility][QLH] VITAMIN [id number] 10:35:01 Test Item Value Reference Range Interpretation Comments Vitamin B12 Level (test code = 502 pg/ml 254-1320 2132-9) [facility][QLH] TSH, 3RD GENERATION W/REFLEX TO [id number] 10:35:01 Test Item Value Reference Range Interpretation Comments TSH (test code = 17637-1) 1.340 {uIU/ml} 0.360-3.740 [facility][QL] FOLATE, [id number] 10:35:01 Test Item Value Reference Range Interpretation Comments Folate Level (test code = 2284-8) 21.5 ng/ml >=3.0 [facility][QLH] HEMOGLOBIN [id number] 10:35:01 Test Item Value Reference Range Interpretation Comments Hemoglobin A1c (test code = 4548-4) 5.0 % <=5.6 [facility][QL] PTH, INTACT (WITHOUT CALCIUM)2019-02-25 10:35:01 Test Item Value Reference Range Interpretation Comments Parathyroid Hormone Intact (test 51.4 pg/ml 18.4-80.1 code = 2731-8) [facility][QL] VITAMIN D, 25-HYDROXY, LC/MS/[id number] 10:35:01 Test Item Value Reference Range Interpretation Comments Vitamin D, 25-OH, 23.9 ng/ml 30.0-100.0 Reference range is based Total (test code on recommen dations in the = Vitamin D, EndocrineSociet y Clinical 25-OH, Total) Practice Guide line (J Clin Endocrinol Gxqmp1776;96:19 11-1930) [facility][H] Vitamin E [id number] 10:35:01 Test Item Value Reference Range Interpretation Comments Alpha-Tocoph 10.0 mg/L 5.9-19.4 This test was d eveloped and its malini (test performance code = characteristics determined by [facility]Toc[facility]. It has not been cleared malini) orapproved by [facility] Food and Drug Administration. Gamma-Tocoph 0.5 mg/L 0.7-4.9 This test was d eveloped and its malini (test performance code = characteristics determined by Gamma-Tocoph [facility]. It has not been cleared malini) orapproved by [facility] Food and Drug Administration. Reference intervals for a lpha and gamma-tocophero ldetermined from National Health and Nutrition ExaminationSurv ey, 1736-4438. Individuals wit h alpha-tocophero l levelsless than 5.0 mg/L are co nsidered vitamin E deficient.Per formed At: [facility], [place] [id number] ra Sheldon DAY Ph:[phone] [facility][H] Vit [id number] 10:35:01 Test Item Value Reference Range Interpretation Comments Vitamin A 49.9 ug/dL 18.9-57.3 Reference inter vals for vitamin Level (test A determined fr om code = LabCorpinternal studies. Vitamin A Individuals wit h vitamin A less Level) than 20ug/dL ar e considered vitamin A defic ient and those withserum gloria ntrations less than 10 ug/dL a re consideredsever jose deficient.This test was developed and i ts performance characteristics determined by [facility]. It has not been cleared orappro karin by the Food and Drug Administration. Performed At: [facility] [id number] ra Sheldon DAY Ph:[phone] [facility]] VITAMIN B1, WHOLE [id number] 10:35:01 Test Item Value Reference Range Interpretation Comments Vitamin B1 107.5 66.5-200.0 This test was d eveloped and its Level (test nmol/L performance code = characteristics determined by Vitamin B1 [facility]. It has not been Level) cleared orappro karin by the Food and Drug Administration. Performed At: [facility] [id number] ra Sheldon DAY Ph:[phone] [facility] PhysiciansCHEM [id number] 10:00:00 Test Item Value Reference Range Interpretation Comments Phosphorus (test code = Phosphorus) 3.4 2.5-4.5 [facility] [id number] 10:00:00 Test Item Value Reference Range Interpretation Comments Magnesium Lvl (test code = Magnesium 2.1 1.8-2.4 Lvl) [facility] [id number] 10:00:00 Test Item Value Reference Range Interpretation Comments eGFR (test code = eGFR) 124 [facility] [id number] 10:00:00 Test Item Value Reference Range Interpretation Comments Glucose Lvl (test code = Glucose Lvl) 80 70-99 [facility] [id number] 10:00:00 Test Item Value Reference Range Interpretation Comments BUN (test code = BUN) no gt 7-22 [facility] [id number] 10:00:00 Test Item Value Reference Range Interpretation Comments Creatinine Lvl (test code = Creatinine 0.54 0.50-1.40 Lvl) [facility] [id number] 10:00:00 Test Item Value Reference Range Interpretation Comments Sodium Lvl (test code = Sodium Lvl) 140 135-145 [facility]2016-02-07 10:00:00 Test Item Value Reference Range Interpretation Comments Potassium Lvl (test code = Potassium 3.3 3.5-5.1 Lvl) [facility]2016-02-07 10:00:00 Test Item Value Reference Range Interpretation Comments CO2 (test code = CO2) 18 24-32 [facility]2016-02-07 10:00:00 Test Item Value Reference Range Interpretation Comments AGAP (test code = AGAP) 16.3 10.0-20.0 [facility]2016-02-07 10:00:00 Test Item Value Reference Range Interpretation Comments Calcium Lvl (test code = Calcium Lvl) 7.9 8.5-10.5 [facility]2016-02-07 10:00:00 Test Item Value Reference Range Interpretation Comments Chloride Lvl (test code = Chloride Lvl) 109 95-[address] [facility] [place], [id number] 10:00:00 Test Item Value Reference Range Interpretation Comments Monocytes # (test code 0.7 See_Comment [Aut omated message] The = Monocytes #) system which generated this result tra nsmitted reference range : <=0.8. The reference r cameron was not used to int erpret this result as normal/abnormal . [facility] [place], [id number] 10:00:00 Test Item Value Reference Range Interpretation Comments Lymphocytes # (test code = Lymphocytes 2.8 1.0-5.5 #) [facility] [place], TXShzvbwgFHXANNFUBD2400-99-77 10:00:00 Test Item Value Reference Range Interpretation Comments Microcyte (test code = 1+ *ABN*(01/06/16 4:00 Microcyte) AM) [facility] [place], TXYaqznriIOEBPZMVAS0810-02-12 10:00:00 Test Item Value Reference Range Interpretation Comments Eosinophils # (test code 0.1 See_Comment [A utomated message] The = Eosinophils #) system whic h generated this result tra nsmitted reference range : <=0.5. The reference r cameron was not used to int erpret this result as normal/abnormal . [facility] [place], TXDznvqczERCIRSFUKK7984-14-54 10:00:00 Test Item Value Reference Range Interpretation Comments Segs-Bands # (test code = Segs-Bands #) 4.3 1.5-8.[address] [facility] [place], [id number] 10:00:00 Test Item Value Reference Range Interpretation Comments Basophils (test code = 0.5 See_Comment [Aut omated message] The Basophils) system which ge nerated this result tra nsmitted reference range : <=1.0. The reference r cameron was not used to int erpret this result as normal/abnormal . [facility] [place], TXWuhqvgyXODSXMKNHW4856-10-13 10:00:00 Test Item Value Reference Range Interpretation Comments Monocytes (test code = Monocytes) 8.9 2.0-12.[address] [facility] [place], TXVgvyipbJXCFYFYOFO2146-31-00 10:00:00 Test Item Value Reference Range Interpretation Comments Lymphocytes (test code = Lymphocytes) 35.0 20.0-40.[address] [facility] [place], TXZpvzfgiESPHMTCRAS5846-25-23 10:00:00 Test Item Value Reference Range Interpretation Comments Segs (test code = Segs) 54.1 45.0-75.[address] [facility] [place], TXJbkqsopZQPFXNUKMZ4123-14-53 10:00:00 Test Item Value Reference Range Interpretation Comments Eosinophils (test code = 1.5 See_Comment [A utomated message] The Eosinophils) system which ge nerated this result tra nsmitted reference range : <=4.0. The reference r cameron was not used to int erpret this result as normal/abnormal . [facility] [place], TXRxuhnnsTVIQDRFXNO4211-79-20 10:00:00 Test Item Value Reference Range Interpretation Comments MPV (test code = MPV) 7.3 7.4-10.[address] [facility] [place], TXFzpcdxsKWEBUFWJOB7319-95-44 10:00:00 Test Item Value Reference Range Interpretation Comments RDW (test code = RDW) 17.8 11.5-14.[address] [facility] [place], TXScgvkbcIPBOMBRBLE2987-42-59 10:00:00 Test Item Value Reference Range Interpretation Comments Platelet (test code = Platelet) 505 133-[address] [facility] [place], TXRvmmkqzAHNXNZQLCL7261-47-58 10:00:00 Test Item Value Reference Range Interpretation Comments MCH (test code = MCH) 25.2 pg 27.0-31.[address] [facility] [place], TXEqluovdQDMIFUWQOH2373-64-71 10:00:00 Test Item Value Reference Range Interpretation Comments MCHC (test code = MCHC) 33.0 32.0-36.0 [place] 296996-02-07 10:00:00 Test Item Value Reference Range Interpretation Comments WBC (test code = WBC) 8.0 3.7-10.[address] [facility] [place], TXBljycnsRIQKUEBXRV2572-28-62 10:00:00 Test Item Value Reference Range Interpretation Comments RBC (test code = RBC) 4.79 4.20-5.[address] [facility] [place], TXHicujviGLNQCXLFNG9559-33-23 10:00:00 Test Item Value Reference Range Interpretation Comments Hgb (test code = Hgb) 12.1 12.0-16.0 [place] 296996-02-07 10:00:00 Test Item Value Reference Range Interpretation Comments Hct (test code = Hct) 36.7 36.0-48.[address] [facility] [place], TXOslpsrxIRMIFJIZKW9760-48-64 10:00:00 Test Item Value Reference Range Interpretation Comments MCV (test code = MCV) 76.5 80.0-98.0 [facility]2016-02-07 00:51:00 Test Item Value Reference Range Interpretation Comments eGFR (test code = eGFR) 124 [facility]2016-02-07 00:51:00 Test Item Value Reference Range Interpretation Comments Magnesium Lvl (test code = Magnesium 1.8 1.8-2.4 Lvl) [facility]2016-02-07 00:23:00 Test Item Value Reference Range Interpretation Comments Vitamin B12 Lvl (test code = Vitamin 8735 046-7337 B12 Lvl) [facility]2016-02-07 00:23:00 Test Item Value Reference Range Interpretation Comments Vitamin D, 25-OH, Total (test code = 19 30-100 Vitamin D, 25-OH, Total) [facility]2016-02-07 00:23:00 Test Item Value Reference Range Interpretation Comments Chloride Lvl (test code = Chloride Lvl) 106 95-109 [facility]2016-02-07 00:23:00 Test Item Value Reference Range Interpretation Comments CO2 (test code = CO2) 15 24-32 [facility]2016-02-07 00:23:00 Test Item Value Reference Range Interpretation Comments Sodium Lvl (test code = Sodium Lvl) 139 135-145 [facility]2016-02-07 00:23:00 Test Item Value Reference Range Interpretation Comments Potassium Lvl (test code = Potassium 4.1 3.5-5.1 Lvl) [facility]2016-02-07 00:23:00 Test Item Value Reference Range Interpretation Comments AGAP (test code = AGAP) 22.1 10.0-20.0 [facility]2016-02-07 00:23:00 Test Item Value Reference Range Interpretation Comments Calcium Lvl (test code = Calcium Lvl) 8.2 8.5-10.5 [facility]2016-02-07 00:23:00 Test Item Value Reference Range Interpretation Comments BUN (test code = BUN) no gt 7-22 [facility]2016-02-07 00:23:00 Test Item Value Reference Range Interpretation Comments Creatinine Lvl (test code = Creatinine 0.55 0.50-1.40 Lvl) [facility]2016-02-07 00:23:00 Test Item Value Reference Range Interpretation Comments Glucose Lvl (test code = Glucose Lvl) 62 70-99 [facility]2016-02-07 00:23:00 Test Item Value Reference Range Interpretation Comments Phosphorus (test code = Phosphorus) 2.3 2.5-4.5 [facility]2016-02-07 00:23:00 Test Item Value Reference Range Interpretation Comments Albumin Lvl (test code = Albumin Lvl) 2.7 3.5-5.[address] [facility] Ho[id number] 00:23:00 Test Item Value Reference Range Interpretation Comments Prealbumin (test code = Prealbumin) 21.1 18.0-45.[address] [facility] HospitalCcaicyrFVUVLFGODR4798-81-04 00:23:00 Test Item Value Reference Range Interpretation Comments C-REACTIVE PROTEIN (test code = 21.9 C-REACTIVE PROTEIN) [facility] [id number] 21:55:00 Test Item Value Reference Range Interpretation Comments UA Glucose (test code Negative (01/05/16 3:55 = UA Glucose) PM) [facility] [id number] 21:55:00 Test Item Value Reference Range Interpretation Comments UA Ketones (test code = UA >=80 mg/dL Ketones) [facility] AND [id number] 21:55:00 Test Item Value Reference Range Interpretation Comments UA Bili (test code = Small *ABN*(01/05/16 3:55 UA Bili) PM) [id number] 21:55:00 Test Item Value Reference Range Interpretation Comments UA Blood (test code = Moderate *ABN*(01/05/16 UA Blood) 3:55 PM) [facility] AND [id number] 21:55:00 Test Item Value Reference Range Interpretation Comments UA Urobilinogen (test code = UA 0.2 0.1-1.0 Urobilinogen) [facility] AND [id number] 21:55:00 Test Item Value Reference Range Interpretation Comments UA Color (test code = Yellow (01/05/16 3:55 PM) UA Color) [facility] [id number] 21:55:00 Test Item Value Reference Range Interpretation Comments UA Turbidity (test code = Clear (01/05/16 3:55 UA Turbidity) PM) [facility] AND [id number] 21:55:00 Test Item Value Reference Range Interpretation Comments UA Spec Grav (test code = UA Spec 1.018 1 Grav) [facility] AND [id number] 21:55:00 Test Item Value Reference Range Interpretation Comments UA pH (test code = UA pH) 6.0 1 5.0-8.0 [facility] AND [id number] 21:55:00 Test Item Value Reference Range Interpretation Comments UA Protein (test code = Trace *ABN*(01/05/16 UA Protein) 3:55 PM) [facility] AND [id number] 21:55:00 Test Item Value Reference Range Interpretation Comments UA Mucus (test code = UA Mucus) Moderate /LPF [facility] AND [id number] 21:55:00 Test Item Value Reference Range Interpretation Comments Micro? (test code = Performed (01/05/16 3:55 Micro?) PM) [facility] AND [id number] 21:55:00 Test Item Value Reference Range Interpretation Comments UA Sq Epi (test code = UA Sq Moderate /LPF Epi) [facility] AND [id number] 21:55:00 Test Item Value Reference Range Interpretation Comments UA Hyal Cast 3-5 (01/05/16 3:55 See_Comment [Automated message] (test code = UA PM) The system w hich Hyal Cast) generated this result transmitted ref erence range: <=2. The reference range was not used to int erpret this result as normal/abnormal . [facility] [id number] 21:55:00 Test Item Value Reference Range Interpretation Comments UA Bacteria (test code = None Seen (01/05/16 UA Bacteria) 3:55 PM) [facility] [id number] 21:55:00 Test Item Value Reference Range Interpretation Comments UA WBC (test code = UA None Seen (01/05/16 3:55 WBC) PM) [facility] [id number] 21:55:00 Test Item Value Reference Range Interpretation Comments UA RBC (test code = 6-10 /HPF See_Comment [Automa iraj message] The UA RBC) system which ge nerated this result tra nsmitted reference range : <=2. The reference range was not used to interpr et this result as normal/abnormal . [facility] [id number] 21:55:00 Test Item Value Reference Range Interpretation Comments UA Leuk Est (test Negative (01/05/16 3:55 code = UA Leuk Est) PM) [facility] AND [id number] 21:55:00 Test Item Value Reference Range Interpretation Comments UA Nitrite (test code Negative (01/05/16 3:55 = UA Nitrite) PM) [facility]villeCalando PharmaceuticalsCHEM [id number] 21:33:00 Test Item Value Reference Range Interpretation Comments Lactic Acid WB (test code = Lactic Acid 1.0 0.5-2.2 WB) [facility] [id number] 19:47:00 Test Item Value Reference Range Interpretation Comments Troponin-I (test code no gt See_Comment [Auto mated message] The = Troponin-I) system which g enerated this result transmit iraj reference range : <=0.40. The reference r cameron was not used to interpr et this result as rosario l/abnormal. [facility] [id number] 19:47:00 Test Item Value Reference Range Interpretation Comments Phosphorus (test code = Phosphorus) 3.7 2.5-4.5 [facility]2016-02-06 19:47:00 Test Item Value Reference Range Interpretation Comments Magnesium Lvl (test code = Magnesium 1.7 1.8-2.4 Lvl) [facility]2016-02-06 19:47:00 Test Item Value Reference Range Interpretation Comments eGFR (test code = eGFR) 103 [place] [id number] 19:47:00 Test Item Value Reference Range Interpretation Comments Calcium Lvl (test code = Calcium Lvl) 9.2 8.5-10.5 [facility]2016-02-06 19:47:00 Test Item Value Reference Range Interpretation Comments CO2 (test code = CO2) 16 24-32 [place] [id number] 19:47:00 Test Item Value Reference Range Interpretation Comments AGAP (test code = AGAP) 21.4 10.0-20.0 [facility]2016-02-06 19:47:00 Test Item Value Reference Range Interpretation Comments Potassium Lvl (test code = Potassium 3.4 3.5-5.1 Lvl) [facility]2016-02-06 19:47:00 Test Item Value Reference Range Interpretation Comments Chloride Lvl (test code = Chloride Lvl) 99 95-109 [facility]2016-02-06 19:47:00 Test Item Value Reference Range Interpretation Comments Sodium Lvl (test code = Sodium Lvl) 133 135-145 [place] 961176-02-06 19:47:00 Test Item Value Reference Range Interpretation Comments BUN (test code = BUN) 1 7-22 [facility]2016-02-06 19:47:00 Test Item Value Reference Range Interpretation Comments Creatinine Lvl (test code = Creatinine 0.76 0.50-1.40 Lvl) [facility]2016-02-06 19:47:00 Test Item Value Reference Range Interpretation Comments Glucose Lvl (test code = Glucose Lvl) 73 70-[address] [facility] [place], TXSkrpurrTKIDLXXOVJ3492-18-58 19:47:00 Test Item Value Reference Range Interpretation Comments MCHC (test code = MCHC) 31.7 32.0-36.0 [place] 296996-02-06 19:47:00 Test Item Value Reference Range Interpretation Comments MCH (test code = MCH) 24.8 pg 27.0-31.[address] [facility] [place], TXYucvcanCHZMFKNNLD7555-54-67 19:47:00 Test Item Value Reference Range Interpretation Comments RDW (test code = RDW) 18.5 11.5-14.[address] [facility] [place], TXImflgheFOLMWZPHJJ3754-04-54 19:47:00 Test Item Value Reference Range Interpretation Comments MPV (test code = MPV) 7.4 7.4-10.[address] [facility] [place], TXYwmmthuPXTNPALMNN9446-87-98 19:47:00 Test Item Value Reference Range Interpretation Comments MCV (test code = MCV) 78.2 80.0-98.[address] [facility] [place], TXMjcpjwbHKTECZWFYR8350-04-37 19:47:00 Test Item Value Reference Range Interpretation Comments Hct (test code = Hct) 44.5 36.0-48.[address] [facility] [place], TXSfzkekdYKLSLWSNFN3358-29-34 19:47:00 Test Item Value Reference Range Interpretation Comments Platelet (test code = Platelet) 577 133-[address] [facility] [place], TXWepdsncIMBQQXZTWH7912-27-51 19:47:00 Test Item Value Reference Range Interpretation Comments RBC (test code = RBC) 5.69 4.20-5.[address] [facility] [place], TXDrrugakNDKGZAZBID3516-67-60 19:47:00 Test Item Value Reference Range Interpretation Comments WBC (test code = WBC) 12.6 3.7-10.[address] [facility] [place], TXQyqgyqbTWUQTWPSBZ3760-69-96 19:47:00 Test Item Value Reference Range Interpretation Comments Hgb (test code = Hgb) 14.1 12.0-16.[address] [facility] [place], TXBwxwtimSAHSWKVXBC2924-19-02 19:47:00 Test Item Value Reference Range Interpretation Comments Monocytes (test code = Monocytes) 6.5 2.0-12.[address] [facility] [place], TXSdhxrpePIPPQGVYVJ8323-04-42 19:47:00 Test Item Value Reference Range Interpretation Comments Segs-Bands # (test code = Segs-Bands #) 9.4 1.5-8.[address] [facility] [place], TXVxqtlaoXADTWZFUQC4927-82-83 19:47:00 Test Item Value Reference Range Interpretation Comments Basophils (test code = 0.5 See_Comment [Aut omated message] The Basophils) system which ge nerated this result tra nsmitted reference range : <=1.0. The reference r cameron was not used to int erpret this result as normal/abnormal . [place] 296996-02-06 19:47:00 Test Item Value Reference Range Interpretation Comments Lymphocytes # (test code = Lymphocytes 2.2 1.0-5.5 #) [facility] [place], TXQhnxmunTPGEJKIVMM1418-79-75 19:47:00 Test Item Value Reference Range Interpretation Comments Monocytes # (test code 0.8 See_Comment [Aut omated message] The = Monocytes #) system which generated this result tra nsmitted reference range : <=0.8. The reference r cameron was not used to int erpret this result as normal/abnormal . [facility] [place], TXWuyduecJWSYJCLYSX0152-70-99 19:47:00 Test Item Value Reference Range Interpretation Comments Eosinophils # (test code 0.1 See_Comment [A utomated message] The = Eosinophils #) system whic h generated this result tra nsmitted reference range : <=0.5. The reference r cameron was not used to int erpret this result as normal/abnormal . [facility] [place], TXTzjjafvBCPQRUWSAR8803-07-21 19:47:00 Test Item Value Reference Range Interpretation Comments Microcyte (test code = 1+ *ABN*(01/05/16 1:47 Microcyte) PM) [facility] [place], TXHtuhhqpSIAYIQIYVU7289-66-51 19:47:00 Test Item Value Reference Range Interpretation Comments Basophils # (test code 0.1 See_Comment [Aut omated message] The = Basophils #) system which generated this result tra nsmitted reference range : <=0.2. The reference r cameron was not used to int erpret this result as normal/abnormal . [facility] [place], TXAexzgsiVQUEBSDPAS2855-44-54 19:47:00 Test Item Value Reference Range Interpretation Comments Lymphocytes (test code = Lymphocytes) 17.8 20.0-40.[address] [facility] [place], TXJbintbxFNRVSKSEIK8156-60-76 19:47:00 Test Item Value Reference Range Interpretation Comments Eosinophils (test code = 0.5 See_Comment [A utomated message] The Eosinophils) system which ge nerated this result tra nsmitted reference range : <=4.0. The reference r cameron was not used to int erpret this result as normal/abnormal . [facility] [place], TXIimbbvqUASYXODIVH3019-21-53 19:47:00 Test Item Value Reference Range Interpretation Comments Segs (test code = Segs) 74.7 45.0-75.0 [facility]2016-02-02 11:00:00 Test Item Value Reference Range Interpretation Comments Magnesium Lvl (test code = Magnesium 1.8 1.8-2.4 Lvl) [facility]2016-02-02 11:00:00 Test Item Value Reference Range Interpretation Comments Phosphorus (test code = Phosphorus) 2.3 2.5-4.5 [facility]2016-02-02 11:00:00 Test Item Value Reference Range Interpretation Comments Calcium Lvl (test code = Calcium Lvl) 7.7 8.5-10.5 [facility]2016-02-02 11:00:00 Test Item Value Reference Range Interpretation Comments Sodium Lvl (test code = Sodium Lvl) 139 135-145 [facility]2016-02-02 11:00:00 Test Item Value Reference Range Interpretation Comments CO2 (test code = CO2) 22 24-32 [facility]2016-02-02 11:00:00 Test Item Value Reference Range Interpretation Comments AGAP (test code = AGAP) 14.4 10.0-20.0 [facility]2016-02-02 11:00:00 Test Item Value Reference Range Interpretation Comments Potassium Lvl (test code = Potassium 4.4 3.5-5.1 Lvl) [facility]2016-02-02 11:00:00 Test Item Value Reference Range Interpretation Comments Chloride Lvl (test code = Chloride Lvl) 107 95-109 [facility]2016-02-02 11:00:00 Test Item Value Reference Range Interpretation Comments Creatinine Lvl (test code = Creatinine 0.31 0.50-1.40 Lvl) [facility]2016-02-02 11:00:00 Test Item Value Reference Range Interpretation Comments Glucose Lvl (test code = Glucose Lvl) 58 70-99 [facility]2016-02-02 11:00:00 Test Item Value Reference Range Interpretation Comments BUN (test code = BUN) no gt 7- [facility]2016-02-02 11:00:00 Test Item Value Reference Range Interpretation Comments eGFR (test code = eGFR) [address] [facility] [place], TXTlhyogcLLGCKSSGOD3802-53-15 11:00:00 Test Item Value Reference Range Interpretation Comments Monocytes # (test code 0.7 See_Comment [Aut omated message] The = Monocytes #) system which generated this result tra nsmitted reference range : <=0.8. The reference r cameron was not used to int erpret this result as normal/abnormal . [facility] [place], TXXomndovRQJWRXBUFG0309-61-14 11:00:00 Test Item Value Reference Range Interpretation Comments Eosinophils # (test code 0.1 See_Comment [A utomated message] The = Eosinophils #) system whic h generated this result tra nsmitted reference range : <=0.5. The reference r cameron was not used to int erpret this result as normal/abnormal . [facility] [place], TXNbvvohsOWTBHAXIVH9870-53-22 11:00:00 Test Item Value Reference Range Interpretation Comments Basophils # (test code 0.1 See_Comment [Aut omated message] The = Basophils #) system which generated this result tra nsmitted reference range : <=0.2. The reference r cameron was not used to int erpret this result as normal/abnormal . [facility] [place], TXPfzapwsAMYJVOPKFR8154-04-52 11:00:00 Test Item Value Reference Range Interpretation Comments Microcyte (test code = 1+ *ABN*(01/01/16 5:00 Microcyte) AM) [facility] [place], TXHegxtrmNRRBJUFKON0171-80-36 11:00:00 Test Item Value Reference Range Interpretation Comments Basophils (test code = 1.3 See_Comment [Aut omated message] The Basophils) system which ge nerated this result tra nsmitted reference range : <=1.0. The reference r cameron was not used to int erpret this result as normal/abnormal . [facility] [place], TXIzklqzoCWTFRKTEVQ9941-70-48 11:00:00 Test Item Value Reference Range Interpretation Comments Lymphocytes # (test code = Lymphocytes 3.0 1.0-5.5 #) [facility] [place], TXWacngdyAQYEDZOKWF1808-62-55 11:00:00 Test Item Value Reference Range Interpretation Comments Segs-Bands # (test code = Segs-Bands #) 2.2 1.5-8.[address] [facility] [place], TXFfqbmzoEFLBWFGMVP4539-45-54 11:00:00 Test Item Value Reference Range Interpretation Comments Monocytes (test code = Monocytes) 11.1 2.0-12.[address] [facility] [place], TXAsozwisJKKPKVCGEX8245-55-23 11:00:00 Test Item Value Reference Range Interpretation Comments Eosinophils (test code = 2.2 See_Comment [A utomated message] The Eosinophils) system which ge nerated this result tra nsmitted reference range : <=4.0. The reference r cameron was not used to int erpret this result as normal/abnormal . [facility] [place], TXVrrmbxsEOOUASCAIJ1999-79-96 11:00:00 Test Item Value Reference Range Interpretation Comments Lymphocytes (test code = Lymphocytes) 49.6 20.0-40.[address] [facility] [place], TXNucvkobZWYTSZZCJG5045-20-72 11:00:00 Test Item Value Reference Range Interpretation Comments Segs (test code = Segs) 35.8 45.0-75.[address] [facility] [place], TXDcsywgfUNLTWBQWRR1305-67-16 11:00:00 Test Item Value Reference Range Interpretation Comments MCH (test code = MCH) 25.3 pg 27.0-31.[address] [facility] [place], TXRyzvvnyGNKSZWMCWT4909-09-59 11:00:00 Test Item Value Reference Range Interpretation Comments MCHC (test code = MCHC) 32.6 32.0-36.[address] [facility] [place], TXMonxmprGGTJIIEEKJ9497-25-93 11:00:00 Test Item Value Reference Range Interpretation Comments RDW (test code = RDW) 17.7 11.5-14.[address] [facility] [place], TXSbdjeyaSRNZCLLUDR3893-98-14 11:00:00 Test Item Value Reference Range Interpretation Comments MCV (test code = MCV) 77.5 80.0-98.[address] [facility] [place], TXWqukjycHNDBGVBEZA7189-86-11 11:00:00 Test Item Value Reference Range Interpretation Comments Hct (test code = Hct) 35.4 36.0-48.[address] [facility] [place], TXOsnqhflZMXTZSIZWF9352-06-99 11:00:00 Test Item Value Reference Range Interpretation Comments Hgb (test code = Hgb) 11.6 12.0-16.[address] [facility] [place], TXBcfpaqfUVLMXAVWMH3378-84-59 11:00:00 Test Item Value Reference Range Interpretation Comments RBC (test code = RBC) 4.56 4.20-5.[address] [facility] [place], TXDuepfslINEVGAYVNS2216-03-83 11:00:00 Test Item Value Reference Range Interpretation Comments WBC (test code = WBC) 6.1 3.7-10.[address] [facility] [place], TXQdtinbjRTIJYWWSOD4640-95-73 11:00:00 Test Item Value Reference Range Interpretation Comments Platelet (test code = Platelet) 279 133-[address] [facility] [place], TXTlbptqqYRYSWXXGLG0977-79-03 11:00:00 Test Item Value Reference Range Interpretation Comments MPV (test code = MPV) 9.0 7.4-10.4 [facility] [id number] 10:43:00 Test Item Value Reference Range Interpretation Comments Phosphorus (test code = Phosphorus) 2.5 2.5-4.5 [facility] PFNPK3243-68-32 10:43:00 Test Item Value Reference Range Interpretation Comments Magnesium Lvl (test code = Magnesium 1.7 1.8-2.4 Lvl) [facility]afkitaYXJMZGUEPOHW6137-84-47 10:43:00 Test Item Value Reference Range Interpretation Comments AGAP (test code = AGAP) 13.2 10.0-20.0 [facility] HospitalOrzolfkUZBRCGPGYKBG1316-63-49 10:43:00 Test Item Value Reference Range Interpretation Comments eGFR (test code = eGFR) 147 [facility] HospitalQmrpbluWTGEKMXNHGWE7115-27-83 10:43:00 Test Item Value Reference Range Interpretation Comments Calcium Lvl (test code = Calcium Lvl) 7.7 8.5-10.5 [facility] HospitalNgmxyxsWZOGQUESSADW5130-13-88 10:43:00 Test Item Value Reference Range Interpretation Comments Potassium Lvl (test code = Potassium 3.2 3.5-5.1 Lvl) [facility] HospitalCydjhmvSCLLXWWKPIIO5088-54-72 10:43:00 Test Item Value Reference Range Interpretation Comments CO2 (test code = CO2) 24 24-32 [facility] HospitalKvxiizzJYQLDCYBCKEI4894-40-06 10:43:00 Test Item Value Reference Range Interpretation Comments Chloride Lvl (test code = Chloride Lvl) 107 95-109 [facility] HospitalRpjztehASEIXSRWKCQG8913-39-62 10:43:00 Test Item Value Reference Range Interpretation Comments Glucose Lvl (test code = Glucose Lvl) 77 70-99 [facility] HospitalPpufxzrSWOJMNCULQWF0759-29-55 10:43:00 Test Item Value Reference Range Interpretation Comments Creatinine Lvl (test code = Creatinine 0.32 0.50-1.40 Lvl) [facility] HospitalTamcdssXYSDBXCWEYKO3127-35-34 10:43:00 Test Item Value Reference Range Interpretation Comments BUN (test code = BUN) 2 7-22 [facility] HospitalWucmjavXNBTKRAWQGYD2108-11-80 10:43:00 Test Item Value Reference Range Interpretation Comments Sodium Lvl (test code = Sodium Lvl) 141 135-[address] [facility] [place], TXLntxjljOZXFGWKIRX5305-58-21 10:43:00 Test Item Value Reference Range Interpretation Comments WBC (test code = WBC) 5.6 3.7-10.[address] [facility] [place], TXViwhgzaVMDBERGEBJ9245-20-02 10:43:00 Test Item Value Reference Range Interpretation Comments RBC (test code = RBC) 4.08 4.20-5.[address] [facility] [place], TXFldrzogTDKUGEZCVX1443-73-96 10:43:00 Test Item Value Reference Range Interpretation Comments MCH (test code = MCH) 25.3 pg 27.0-31.[address] [facility] [place], TXZpeedcqWOICPLNFHS2807-59-55 10:43:00 Test Item Value Reference Range Interpretation Comments MCV (test code = MCV) 76.8 80.0-98.[address] [facility] [place], TXKmlhrgjAIRCBFTNEY5344-08-58 10:43:00 Test Item Value Reference Range Interpretation Comments MPV (test code = MPV) 8.9 7.4-10.[address] [facility] [place], TXXykrqnaDNIGVUKEXW9348-43-09 10:43:00 Test Item Value Reference Range Interpretation Comments Platelet (test code = Platelet) 267 133-[address] [facility] [place], TXKldkcuuEMMVGVHZJV9891-30-74 10:43:00 Test Item Value Reference Range Interpretation Comments RDW (test code = RDW) 17.5 11.5-14.[address] [facility] [place], TXEclacqbXWXBQQBUCM8519-65-58 10:43:00 Test Item Value Reference Range Interpretation Comments MCHC (test code = MCHC) 33.0 32.0-36.[address] [facility] [place], TXRgjxnsxPUKUKYVPPP9465-39-71 10:43:00 Test Item Value Reference Range Interpretation Comments Hct (test code = Hct) 31.3 36.0-48.[address] [facility] [place], TXRqjsrkuMDWYBOVQGB7363-12-70 10:43:00 Test Item Value Reference Range Interpretation Comments Hgb (test code = Hgb) 10.3 12.0-16.[address] [facility] [place], TXJkoievwYJOPZBGILG6842-28-39 10:43:00 Test Item Value Reference Range Interpretation Comments Segs-Bands # (test code = Segs-Bands #) 2.4 1.5-8.[address] [facility] [place], TXCrhzcbaCIOSQKEFWA8837-50-01 10:43:00 Test Item Value Reference Range Interpretation Comments Basophils (test code = 1.1 See_Comment [Aut omated message] The Basophils) system which ge nerated this result tra nsmitted reference range : <=1.0. The reference r cameron was not used to int erpret this result as normal/abnormal . [facility] [place], TXBgnymjpUIDEPVAUJM8195-94-12 10:43:00 Test Item Value Reference Range Interpretation Comments Eosinophils (test code = 2.4 See_Comment [A utomated message] The Eosinophils) system which ge nerated this result tra nsmitted reference range : <=4.0. The reference r cameron was not used to int erpret this result as normal/abnormal . [facility] [place], TXJzyiujuUICZJAKBZI3538-26-28 10:43:00 Test Item Value Reference Range Interpretation Comments Monocytes (test code = Monocytes) 12.2 2.0-12.[address] [facility] [place], TXEdaxplhWTNDWPAXWY5920-80-81 10:43:00 Test Item Value Reference Range Interpretation Comments Monocytes # (test code 0.7 See_Comment [Aut omated message] The = Monocytes #) system which generated this result tra nsmitted reference range : <=0.8. The reference r cameron was not used to int erpret this result as normal/abnormal . [facility] [place], TXGgezfawPBTAZCVTTY3865-35-52 10:43:00 Test Item Value Reference Range Interpretation Comments Microcyte (test code = 1+ *ABN*(12/31/15 4:43 Microcyte) AM) [facility] [place], TXRfsgwgcSSXFGTXVKB5186-58-31 10:43:00 Test Item Value Reference Range Interpretation Comments Basophils # (test code 0.1 See_Comment [Aut omated message] The = Basophils #) system which generated this result tra nsmitted reference range : <=0.2. The reference r cameron was not used to int erpret this result as normal/abnormal . [facility] [place], TXHryyxvqPDGVOJEOLQ5611-71-05 10:43:00 Test Item Value Reference Range Interpretation Comments Eosinophils # (test code 0.1 See_Comment [A utomated message] The = Eosinophils #) system whic h generated this result tra nsmitted reference range : <=0.5. The reference r cameron was not used to int erpret this result as normal/abnormal . [facility] [place], TXBqapoksLIRJFLPMLZ1152-84-84 10:43:00 Test Item Value Reference Range Interpretation Comments Lymphocytes # (test code = Lymphocytes 2.3 1.0-5.5 #) [facility] [place], TXRcnmrbdCBIRWMBKOO5403-86-28 10:43:00 Test Item Value Reference Range Interpretation Comments Lymphocytes (test code = Lymphocytes) 41.7 20.0-40.[address] [facility] [place], TXHwjkqdiOWMMTKLVTE8149-56-27 10:43:00 Test Item Value Reference Range Interpretation Comments Segs (test code = Segs) 42.6 45.0-75.0 [facility]2016-01-31 11:53:00 Test Item Value Reference Range Interpretation Comments eGFR (test code = eGFR) 151 [facility]2016-01-31 11:53:00 Test Item Value Reference Range Interpretation Comments Glucose Lvl (test code = Glucose Lvl) 71 70-99 [facility]2016-01-31 11:53:00 Test Item Value Reference Range Interpretation Comments BUN (test code = BUN) 4 7-22 [facility]2016-01-31 11:53:00 Test Item Value Reference Range Interpretation Comments Creatinine Lvl (test code = Creatinine 0.30 0.50-1.40 Lvl) [facility]2016-01-31 11:53:00 Test Item Value Reference Range Interpretation Comments Sodium Lvl (test code = Sodium Lvl) 141 135-145 [facility]2016-01-31 11:53:00 Test Item Value Reference Range Interpretation Comments Potassium Lvl (test code = Potassium 3.1 3.5-5.1 Lvl) [facility]2016-01-31 11:53:00 Test Item Value Reference Range Interpretation Comments Chloride Lvl (test code = Chloride Lvl) 107 95-109 [facility]2016-01-31 11:53:00 Test Item Value Reference Range Interpretation Comments Calcium Lvl (test code = Calcium Lvl) 7.8 8.5-10.5 [facility]2016-01-31 11:53:00 Test Item Value Reference Range Interpretation Comments CO2 (test code = CO2) 24-32 [facility]2016-01-31 11:53:00 Test Item Value Reference Range Interpretation Comments AGAP (test code = AGAP) 11.1 10.0-20.0 [facility]2016-01-31 11:53:00 Test Item Value Reference Range Interpretation Comments Phosphorus (test code = Phosphorus) 2.7 2.5-4.5 [facility]2016-01-31 11:53:00 Test Item Value Reference Range Interpretation Comments Magnesium Lvl (test code = Magnesium 1.9 1.8-2.4 Lvl) [facility] [place], TXLbzwqcpIHYWGLSAZM5232-10-17 11:53:00 Test Item Value Reference Range Interpretation Comments Eosinophils # (test code 0.2 See_Comment [A utomated message] The = Eosinophils #) system whic h generated this result tra nsmitted reference range : <=0.5. The reference r cameron was not used to int erpret this result as normal/abnormal . [facility] [place], TXRnthtzmLHJGJGLSOU1326-05-20 11:53:00 Test Item Value Reference Range Interpretation Comments Monocytes # (test code 0.6 See_Comment [Aut omated message] The = Monocytes #) system which generated this result tra nsmitted reference range : <=0.8. The reference r cameron was not used to int erpret this result as normal/abnormal . [facility] [place], TXAjazbnxFKDBNKWJRO3703-91-37 11:53:00 Test Item Value Reference Range Interpretation Comments Segs (test code = Segs) 59.8 45.0-75.[address] [facility] [place], TXDqllsgyZDOXTQUDMA1739-47-07 11:53:00 Test Item Value Reference Range Interpretation Comments Lymphocytes # (test code = Lymphocytes 1.6 1.0-5.5 #) [facility] [place], TXRkqvdbxFVHHXUNEHD6851-68-60 11:53:00 Test Item Value Reference Range Interpretation Comments Segs-Bands # (test code = Segs-Bands #) 3.6 1.5-8.[address] [facility] [place], TXUwycjdhVVEVLLZIYD3592-65-04 11:53:00 Test Item Value Reference Range Interpretation Comments Basophils (test code = 0.7 See_Comment [Aut omated message] The Basophils) system which ge nerated this result tra nsmitted reference range : <=1.0. The reference r cameron was not used to int erpret this result as normal/abnormal . [facility] [place], TXZaynebuBEHXKWVIQO9710-82-30 11:53:00 Test Item Value Reference Range Interpretation Comments Lymphocytes (test code = Lymphocytes) 26.3 20.0-40.[address] [facility] [place], TXYylyiaiMUDJNOZMDR9514-04-96 11:53:00 Test Item Value Reference Range Interpretation Comments Monocytes (test code = Monocytes) 10.7 2.0-12.[address] [facility] [place], TXNcyvjhvLIEIOXOTTR6324-78-16 11:53:00 Test Item Value Reference Range Interpretation Comments Eosinophils (test code = 2.5 See_Comment [A utomated message] The Eosinophils) system which ge nerated this result tra nsmitted reference range : <=4.0. The reference r cameron was not used to int erpret this result as normal/abnormal . [facility] [place], TXLwbgngxXWQLMZDOCA8495-58-43 11:53:00 Test Item Value Reference Range Interpretation Comments Microcyte (test code = 1+ *ABN*(12/30/15 Microcyte) 5:53 AM) [facility] [place], TXJymqhkxZZCDIPBWRW4737-35-67 11:53:00 Test Item Value Reference Range Interpretation Comments RDW (test code = RDW) 17.3 11.5-14.[address] [facility] [place], TXAltfzgtVOVQOADORP6687-01-81 11:53:00 Test Item Value Reference Range Interpretation Comments MCH (test code = MCH) 25.6 pg 27.0-31.[address] [facility] [place], TXNkxtaxtTAWYBFLCQC8397-83-93 11:53:00 Test Item Value Reference Range Interpretation Comments Platelet (test code = Platelet) 251 133-[address] [facility] [place], TXFbokgrvBGDYYNJTDZ7982-66-73 11:53:00 Test Item Value Reference Range Interpretation Comments MPV (test code = MPV) 9.1 7.4-10.[address] [facility] [place], TXRihlyrrDJPEVMDPDK5591-38-69 11:53:00 Test Item Value Reference Range Interpretation Comments MCHC (test code = MCHC) 33.1 32.0-36.[address] [facility] [place], TXKdzedjxEEFNEESNYC9569-48-71 11:53:00 Test Item Value Reference Range Interpretation Comments Hgb (test code = Hgb) 11.0 12.0-16.[address] [facility] [place], TXBbubfysJAHEFRPNQP6537-21-66 11:53:00 Test Item Value Reference Range Interpretation Comments WBC (test code = WBC) 6.0 3.7-10.[address] [facility] [place], TXVebfebsDEBWHAUVDL6439-94-65 11:53:00 Test Item Value Reference Range Interpretation Comments Hct (test code = Hct) 33.3 36.0-48.[address] [facility] [place], TXQmcgofyNIEIXWRLNF2220-21-57 11:53:00 Test Item Value Reference Range Interpretation Comments MCV (test code = MCV) 77.2 80.0-98.[address] [facility] [place], TXGllinaaGFRSFGVVSE9381-44-60 11:53:00 Test Item Value Reference Range Interpretation Comments RBC (test code = RBC) 4.31 4.20-5.40 [facility]AW[facility]OBHVV5875[facility]-76 11:53:00 Test Item Value Reference Range Interpretation Comments C-REACTIVE PROTEIN (test code = 71.8 C-REACTIVE PROTEIN) [facility]KPNOIEDX8556-67-75 11:53:00 Test Item Value Reference Range Interpretation Comments Prealbumin (test code = Prealbumin) 6.9 18.0-45.[address] [facility] [place], TXJoroomqKDQVRLXIKI3995-34-95 06:24:00 Test Item Value Reference Range Interpretation Comments Basophils # (test code 0.1 See_Comment [Aut omated message] The = Basophils #) system which generated this result tra nsmitted reference range : <=0.2. The reference r cameron was not used to int erpret this result as normal/abnormal . [facility] [place], TXVpbjllbOODSLCRATT6703-43-90 06:31:00 Test Item Value Reference Range Interpretation Comments Hypochrom (test code = 1+ (12/28/15 12:31 Hypochrom) AM) [facility] [id number] 21:48:00 Test Item Value Reference Range Interpretation Comments Micro? (test code = Performed *NA*(12/27/15 Micro?) 3:48 PM) [facility] [id number] 21:48:00 Test Item Value Reference Range Interpretation Comments UA Urobilinogen (test code = UA <=1.0 mg/dL 0.1-1.0 Urobilinogen) [facility] [id number] 21:48:00 Test Item Value Reference Range Interpretation Comments UA Sq Epi (test code = UA Sq Epi) RARE [facility] [id number] 21:48:00 Test Item Value Reference Range Interpretation Comments UA Bacteria (test code = UA Few /HPF Bacteria) [facility] [id number] 21:48:00 Test Item Value Reference Range Interpretation Comments UA Mucus (test code = UA Mucus) Few /LPF [facility] [id number] 21:48:00 Test Item Value Reference Range Interpretation Comments UA WBC (test code = 1 See_Comment [Automa iraj message] The UA WBC) system which ge nerated this result transmit iraj reference range : <=5. The reference range was not used to interpr et this result as rosario l/abnormal. [facility] [id number] 21:48:00 Test Item Value Reference Range Interpretation Comments UA RBC (test code = 3 See_Comment [Automa iraj message] The UA RBC) system which ge nerated this result transmit iraj reference range : <=2. The reference range was not used to interpr et this result as rosario l/abnormal. [facility] [id number] 21:48:00 Test Item Value Reference Range Interpretation Comments UA Ketones (test code = UA Ketones) 60 mg/dL [facility] [id number] 21:48:00 Test Item Value Reference Range Interpretation Comments UA Blood (test code = Small *ABN*(12/27/15 UA Blood) 3:48 PM) [facility] [id number] 21:48:00 Test Item Value Reference Range Interpretation Comments UA Glucose (test code = UA Negative mg/dL Glucose) [facility] [id number] 21:48:00 Test Item Value Reference Range Interpretation Comments UA Leuk Est (test Negative (12/27/15 3:48 code = UA Leuk Est) PM) [facility] [id number] 21:48:00 Test Item Value Reference Range Interpretation Comments UA Nitrite (test code Negative (12/27/15 3:48 = UA Nitrite) PM) [facility] [id number] 21:48:00 Test Item Value Reference Range Interpretation Comments UA Bili (test code = Negative *NA*(12/27/15 UA Bili) 3:48 PM) [facility] AND [id number] 21:48:00 Test Item Value Reference Range Interpretation Comments UA pH (test code = UA pH) 5.0 5.0-8.0 [facility] [id number] 21:48:00 Test Item Value Reference Range Interpretation Comments UA Spec Grav (test code = UA Spec Grav) 1.014 [facility] [id number] 21:48:00 Test Item Value Reference Range Interpretation Comments UA Turbidity (test code Slight *ABN*(12/27/15 = UA Turbidity) 3:48 PM) [facility] [id number] 21:48:00 Test Item Value Reference Range Interpretation Comments UA Color (test code = Yellow *NA*(12/27/15 UA Color) 3:48 PM) [facility] [id number] 21:48:00 Test Item Value Reference Range Interpretation Comments UA Protein (test code = UA Negative mg/dL Protein) [facility] [id number] 21:48:00 Test Item Value Reference Range Interpretation Comments U Preg (test code = U Negative (12/27/15 3:48 Preg) PM) [facility] [place], [id number] 12:36:00 Test Item Value Reference Range Interpretation Comments Plt Morph (test code = Normal (12/27/15 6:36 Plt Morph) AM) [facility] [place], [id number] 12:36:00 Test Item Value Reference Range Interpretation Comments Atypical Lymphs (test code = Atypical 0.0 Lymphs) [facility] [place], [id number] 12:36:00 Test Item Value Reference Range Interpretation Comments Bands (test code = 9.0 See_Comment [Automat ed message] The Bands) system which ge nerated this result transmit iraj reference range : <=11.0. The reference r cameron was not used to interpr et this result as rosario l/abnormal. [facility] [employer] [facility] [id number] 04:15:00 Test Item Value Reference Range Interpretation Comments ABO/Rh (test code = ABO/Rh) A NEG [facility] [id number] 04:15:00 Test Item Value Reference Range Interpretation Comments Antibody Scrn (test Negative (12/26/15 code = Antibody Scrn) 10:15 PM) [facility] [id number] 03:30:00 Test Item Value Reference Range Interpretation Comments Lactic Acid Lvl (test code = Lactic 1.5 0.5-2.2 Acid Lvl) [facility] [id number] 03:30:00 Test Item Value Reference Range Interpretation Comments Lipase Lvl (test code = Lipase Lvl) 195 73-393 [id number] 03:30:00 Test Item Value Reference Range Interpretation Comments A/G Ratio (test code = A/G Ratio) 0.6 0.7-1.6 [place] [id number] 03:30:00 Test Item Value Reference Range Interpretation Comments Globulin (test code = Globulin) 5.1 2.0-4.0 [place] [id number] 03:30:00 Test Item Value Reference Range Interpretation Comments Bili Indirect (test 0.7 See_Comment [Automa iraj message] The code = Bili Indirect) system which generated this result tra nsmitted reference range : <=1.0. The reference r cameron was not used to int erpret this result as normal/abnormal . [place] [id number] 03:30:00 Test Item Value Reference Range Interpretation Comments Bili Direct (test code 0.5 See_Comment [Aut omated message] The = Bili Direct) system which generated this result tra nsmitted reference range : <=0.3. The reference r cameron was not used to int erpret this result as rosario l/abnormal. [place] [id number] 03:30:00 Test Item Value Reference Range Interpretation Comments Bili Total (test code = Bili Total) 1.2 0.2-1.3 [place] [id number] 03:30:00 Test Item Value Reference Range Interpretation Comments Alk Phos (test code = Alk Phos) 154 39-136 [facility]2016-01-28 03:30:00 Test Item Value Reference Range Interpretation Comments Albumin Lvl (test code = Albumin Lvl) 2.9 3.5-5.0 [place] [id number] 03:30:00 Test Item Value Reference Range Interpretation Comments AST (test code = AST) 23 See_Comment [Auto mated message] The system which ge nerated this result transmit iraj reference range : <=37. The reference range was not used to interpr et this result as rosario l/abnormal. [place] [id number] 03:30:00 Test Item Value Reference Range Interpretation Comments ALT (test code = ALT) 44 See_Comment [Auto mated message] The system which ge nerated this result transmit iraj reference range : <=65. The reference range was not used to interpr et this result as rosario l/abnormal. [facility] [id number] 03:30:00 Test Item Value Reference Range Interpretation Comments Total Protein (test code = Total 8.0 6.4-8.4 Protein) [facility] [id number] 03:30:00 Test Item Value Reference Range Interpretation Comments Hypochrom (test code = 1+ (12/26/15 9:30 PM) Hypochrom) [facility] [id number] 03:30:00 Test Item Value Reference Range Interpretation Comments Plt Morph (test code = Normal (12/26/15 9:30 Plt Morph) PM) [facility] [place], [id number] 03:30:00 Test Item Value Reference Range Interpretation Comments PT (test code = PT) 15.5 s 12.0-14.[address] [facility] [place], [id number] 03:30:00 Test Item Value Reference Range Interpretation Comments INR (test code = INR) 1.20 0.85-1.17 [id number] 03:30:00 Test Item Value Reference Range Interpretation Comments PTT (test code = PTT) 27.5 s 22.9-35.8 [facility] Center[facility]OV 2 AntigenSARS-COV 2 Antigen Notes Date/Time Note Provider Source 2016-01-05 EXAM: XR CHEST 1 VIEW [facility] 14:50:00-00:00 DATE: 01/05/2016 2:26 PM [facility] INDICATION: Arrhythmias COMPARISON: 12/26/2015 TECHNIQUE: AP chest FINDINGS: Lines and tubes: None. Lungs and pleura: No pulmonary or pleural based abnormality is identified. Heart and mediastinum: The h eart size is normal for technique. The mediastinal contours are normal. Bones: No acute bony abnormality is identified. IMPRESSION: No acute cardiopulmonary abnormality . 2015-12-27 EXAM: FLUOROSCOPY UPPER GI SINGLE CONTRAST [facility] 11:10:00-00:00 DATE: 12/27/2015 3:23 AM [facility] er INDICATION: Abdominal Pain; evaluate leak ADDITIONAL INFORMATION: 1 mo nth s/p gastric sleeve with PO intolerance; Contained leak seen on same day CT. COMPARISON: CT abdomen 12/27/2015. TECHNIQUE: Upper GI was performed using single c ontrast technique . FLUOROSCOPY TIME: 1 minute 40 seconds DISCUSSION: An upper gastroi ntestinal study was performed, with satisfactory passage of the Omnipaque 300 beyond the gastroesophageal junction into the small bowel. Postsurgical changes of the sleeve ga strectomy are noted. No leakage of contrast was visualized. IMPRESSION: No leakage of contrast identified. These findings were discuss ed with surgery regulatory intern Dr. Reyes 12/27/2015 at 1200 hours. 2015-12-27 EXAM: CT ABDOMEN AND PELVIS WITH CONTRAST [facility] 01:43:01-00:00 DATE: 12/26/2015 9:26 PM [facility] er INDICATION: Abdominal pain, acute ADDITIONAL INFORMATION: Stat us post lap sleeve gastrectomy on 11/20/2015, with new onset epigastric pain associated with nausea and vomiting. COMPARISON: None. TECHNIQUE: Volumetric CT acq uisition of the abdomen and pelvis after the intravenous and Gastrografin oral contrast administration. Axial, coronal and sagittal reconstructions. FINDINGS: Lines and tubes: None. Lower thorax: Incidental not e is made of a 4 mm nodule in the right lower lobe (series 7/image 2), as well as a 7 mm subpleural nodule (series 7/image 10). Liver: The liver is normal i n contour and size. There is focal fatty infiltration along the falciform ligament. Biliary tree: No intra- or extrahepatic biliary ductal dilation. Gallbladder: The gallbladder has been surgically removed. Pancreas: Normal. Gastrointestinal tract: The patient is status post sleeve gastrectomy. The body of the stomach is largely collapsed. There is a focal collection of air and fluid adjacent to the gastric sleeve anastomot ic site, concerning for a le ak or a contained abscess. This measures approximately 4.6 x 2.6 x 2.8 cm. No enteric contrast is seen within the leak/contained abscess. However, enteric contrast does pass into the small and large bow el, which are of normal caliber. The appendix is normal. Spleen: The superomedial asp ect of the spleen contains a hypodensity which may reflect abutment or extension of the leak/contained abscess from the gastric sleeve anastomotic site. Otherwise, the spleen is normal in size and contour. Adrenals: Normal. Kidneys and ureters: Kidneys enhance symmetrically, and demonstrate normal excretion of intravenous contrast on delayed imaging. A simple cyst is present in the superior pole of the left kidney. Bladder: Normal. Reproductive organs: An intrauterine device is p resent. Peritoneum and retroperitoneum: No ascites. Lymph nodes: Subcentimeter r etroperitoneal lymph nodes are likely reactive in nature. Vasculature: Normal. Bones: Normal. Soft tissues: Normal. IMPRESSION: 1. Focal collection of air a nd fluid adjacent to the gastric sleeve anastomotic site, which is concerning for a leak and/or a contained abscess given the fact that no enteric contrast is present at this site. 2. The superior medial aspec t of the spleen contains a hypodensity which may reflect abutment or extension of the above mentioned abscess/fluid collection. 3. Subcentimeter retroperitoneal lymph nodes, li ginette reactive. 4. Incidental note of a 4 mm nodule in the right lower lobe as well as a 7 mm subpleural nodule. Per the Fleischner Society guidelines for management incidentally detected pulmonary nodules: Initial fol low up for low risk patients for nodules measuring 6-8 mm is at 6-12 months, then 18-24 months. Initial follow up for high risk patients 3-6 months, then 18 to 24 months. 2015-12-26 EXAM: XR CHEST 1 VIEW [facility] 21:32:00-00:00 DATE: 12/26/2015 9:25 PM [facility] INDICATION: Cough and fever COMPARISON: None TECHNIQUE: AP chest FINDINGS: The lungs and pleu ra clear. No pleural effusion or pneumothorax is identified. The cardiac mediastinal silhouette is normal for technique. No acute bony abnormality is seen. IMPRESSION: No acute abnormality identified.
--- NOTE | 2023-07-10 13:38 | ER ---
Nurse's Notes [facility] Name: Sherita Tyler Age: 43 yrs Sex: Female : 1980 Arrival Date: 07/10/2023 Time: 12:38 Bed 16 Private MD: Diagnosis: Dyspnea Presentation: 07/10 12:44 Chief complaint: EMS states: Chest pressure and SOB that started at 1145 today. Pt had hb right hand sx this morning by Dr. Torres, given T3 before leaving hospital. ASA mg administered STOCK CLIPPER. NSR on 12 lead. Coronavirus screen: At this time, the client does not indicate any symptoms associated with coronavirus-19. Ebola Screen: No symptoms or risks identified at this time. Initial Sepsis Screen: Does the patient meet any 2 criteria? No. Patient's initial sepsis screen is negative. Does the patient have a suspected source of infection? No. Patient's initial sepsis screen is negative. Risk Assessment: Do you want to hurt yourself or someone else? Patient reports no desire to harm self or others. Onset of symptoms was July 10, 2023. 12:44 Method Of Arrival: [facility] hb 12:44 Acuity: SACHA 3 hb [employer]: 13:03 LMP N/A - mb9 Historical: - Allergies: 12:46 NSAIDS (Non-Steroidal Anti-Inflamma; hb - Home Meds: 12:46 phentermine oral [Active]; hb - PMHx: 12:46 None; hb - PSHx: 12:46 Hand - Right; hb - Immunization history:: Adult Immunizations up to date. - Social history:: Smoking status: Patient denies any tobacco usage or history of. Screenin:03 [facility] ED Fall Risk Assessment (Adult) History of falling in the last 3 months, mb9 including since admission No falls in past 3 months (0 pts) Confusion or Disorientation No (0 pts) Intoxicated or Sedated No (0 pts) Impaired Gait No (0 pts) Mobility Assist Device Used No (0 pt) Altered Elimination No (0 pt) Score/Fall Risk Level 0 - 2 = Low Risk Oriented to surroundings, Maintained a safe environment, Educated pt \T\ family on fall prevention, incl call for assistance when getting out of bed. Abuse screen: Denies threats or abuse. Nutritional screening: No deficits noted. Tuberculosis screening: No symptoms or risk factors identified. Assessment: 13:02 General: Appears in no apparent distress. Behavior is calm, cooperative. Pain: ap3 Complains of pain in xiphoid area. Neuro: Level of Consciousness is awake, alert, obeys commands, Oriented to person, place, time, situation. Cardiovascular: Patient's skin is warm and dry. Respiratory: Airway is patent Respiratory effort is even, unlabored, Respiratory pattern is regular, symmetrical. 13:02 Pain: Denies pain. Cardiovascular: Rhythm is regular. Respiratory: Airway is patent mb9 Respiratory effort is even, unlabored, Respiratory pattern is regular, symmetrical, Breath sounds are clear bilaterally. Vital Signs: 12:44 BP 107 / 74; Pulse 61; Resp 16; Temp 98.4; Pulse Ox 100% on R/A; Weight 77.11 kg; hb Height 5 ft. 0 in. ; Pain 4/10; 13:05 BP 111 / 75; Pulse 70; Resp 18; Pulse Ox 100% on R/A; mb9 14:02 BP 108 / 72; Pulse 70; Resp 18; Pulse Ox 100% on R/A; mb9 12:44 Body Mass Index 33.20 (77.11 kg, 152.4 cm) hb 12:44 Pain Scale: Adult hb ED Course: 12:44 Patient arrived in ED. hb 12:45 Shiloh Reid FNP-C is PHCP. kb 12:45 Duke Gomez MD is Attending Physician. kb 12:46 Triage completed. hb 12:46 Lory Jennings, PHU is Primary Nurse. mb9 12:47 Arm band placed on. hb 12:50 EKG done, by ED staff. aw1 12:58 Initial lab(s) drawn, by az, sent to lab. Inserted saline lock: 20 gauge in left ap3 forearm, using aseptic technique. Blood collected. 13:01 IV discontinued, intact, bleeding controlled, No redness/swelling at site. Pressure ap3 dressing applied. 13:02 Basic Metabolic Panel Sent. mb9 13:02 CBC with Diff Sent. mb9 13:02 Troponin HS Sent. mb9 13:03 Placed in gown. Bed in low position. Call light in reach. Side rails up X 1. Client mb9 placed on continuous cardiac and pulse oximetry monitoring. NIBP monitoring applied. panel monitor on. 13:04 No provider procedures requiring assistance completed. mb9 Administered Medications: No medications were administered Medication: 13:03 VIS not applicable for this client. mb9 Outcome: 13:37 Discharge ordered by . elyssa 14:02 Discharged to home ambulatory. mb9 14:02 Condition: stable 14:02 Discharge instructions given to patient, Instructed on discharge instructions, follow up and referral plans. Demonstrated understanding of instructions, follow-up care. 14:02 Patient left the ED. mb9 Signatures: Shiloh Reid, SENIOR TAX ANALYST-C SENIOR TAX ANALYST-CkNatacha Holland, RN RN Ca Dale RN RN ap3 Lory Jennings RN RN mb9 Anastasiia Ureña aw1 Corrections: (The following items were deleted from the chart) 12:48 12:44 Chief complaint: EMS states: Chest pressure and SOB that started at today. Pt had hb right hand sx this morning by Dr. Torres, given T3 before leaving hospital. ASA mg administered STOCK CLIPPER. 12:48 12:44 Chief complaint: EMS states: Chest pressure and SOB that started at 1145 today. hb Pt had right hand sx this morning by Dr. Torres, given T3 before leaving hospital. ASA mg administered STOCK CLIPPER. hb 13:02 13:01 Inserted saline lock: 20 gauge in left forearm, using aseptic technique. Blood ap3 collected. ap3 13:02 13:01 Initial lab(s) drawn, by az, sent to lab. ap3 ap3
--- NOTE | 2023-07-10 13:38 | EDPHYS ---
Physician Documentation [facility] Name: Sherita Tyler Age: 43 yrs Sex: Female : 1980 Arrival Date: 07/10/2023 Time: 12:38 Bed 16 Private MD: ED Physician Duke Gomez HPI: 07/10 13:50 This 43 yrs old Female presents to ER via EMS with complaints of Shortness Of kb Breath, Chest Pain. 13:50 The patient has been recently seen by a physician:. Pt reports she had anesthesia this kb morning for a carpal tunnel procedure. States she started having shortness of breath and chest pain when she got home. Symptoms are now resolved. . 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 - Social history:: Smoking status: Patient denies any tobacco usage or history of. ROS: 13:50 Constitutional: Negative for fever, chills, and weight loss. kb 13:50 Cardiovascular: Positive for chest pain. 13:50 Respiratory: Positive for shortness of breath. 13:50 All other systems are negative. Exam: 12:55 Constitutional: This is a well developed, well nourished patient who is awake, alert, kb and in no acute distress. Head/Face: Normocephalic, atraumatic. ENT: Moist Mucous membranes Cardiovascular: Regular rate and rhythm with a normal S1 and S2. No gallops, murmurs, or rubs. No pulse deficits. Respiratory: Respirations even and unlabored. No increased work of breathing. Talking in full sentences Abdomen/GI: Soft, non-tender. No distention Skin: Warm, dry with normal turgor. Normal color. MS/ Extremity: Pulses equal, no cyanosis. Neurovascular intact. Full, normal range of motion. Neuro: Awake and alert, GCS 15, oriented to person, place, time, and situation. Moves all extremities. Normal gait. 12:55 ECG was reviewed by the Attending Physician. Vital Signs: 12:44 BP 107 / 74; Pulse 61; Resp 16; Temp 98.4; Pulse Ox 100% on R/A; Weight 77.11 kg; hb Height 5 ft. 0 in. ; Pain 4/10; 13:05 BP 111 / 75; Pulse 70; Resp 18; Pulse Ox 100% on R/A; mb9 14:02 BP 108 / 72; Pulse 70; Resp 18; Pulse Ox 100% on R/A; mb9 12:44 Body Mass Index 33.20 (77.11 kg, 152.4 cm) hb 12:44 Pain Scale: Adult hb MDM: 12:45 Patient medically screened. kb 13:47 Differential diagnosis: Anxiety Reaction pneumonia, anesthesia reaction. Data reviewed: kb vital signs, nurses notes. Management of patient was discussed with the following: Bioprocessing Manufacturing Technician: Dr Campos came to see pt in ED. Recommends observation in the ED and discharge. Historians other than the Patient: EMS: [facility]. Counseling: I had a detailed discussion with the patient and/or guardian regarding: the historical points, exam findings, and any diagnostic results supporting the discharge/admit diagnosis, the need for outpatient follow up, a family practitioner, to return to the emergency department if symptoms worsen or persist or if there are any questions or concerns that arise at home. ED course: Pt refuses blood work and chest x-ray. States she is feeling better and ready to go home. 07/10 12:45 Order name: EKG; Complete Time: 12:46 kb 07/10 12:45 Order name: Cardiac monitoring; Complete Time: 12:46 kb 07/10 12:45 Order name: EKG - Nurse/Tech; Complete Time: 12:50 kb 07/10 12:45 Order name: IV Saline Lock; Complete Time: 13:02 kb 07/10 12:45 Order name: Labs collected and sent; Complete Time: 12:46 kb 07/10 12:45 Order name: O2 Per Protocol; Complete Time: 12:47 kb 07/10 12:45 Order name: O2 Sat Monitoring; Complete Time: 12:47 kb EC:55 Rate is 67 beats/min. Rhythm is regular. QRS [place] is Normal. SC interval is normal at kb 144 msec. QRS interval is normal at 80 msec. QT interval is normal at 418 msec. Administered Medications: No medications were administered Disposition: 12:47 ED attending note: Patient is a 43-year-old female who presents by EMS secondary to cp3 acute episode of chest pain and shortness of breath rated at 10 out of 10 prior to arrival and is now resolved. The patient endorses she had carpal tunnel syndrome today surgical repair today when she got home the shortness of breath and chest pain started which have again resolved. Discussed with anesthesia who came by to alert as the patient was coming who endorses they did a fabiana block without general anesthesia which should not have caused any shortness of breath. On exam patient well-appearing no acute distress with stable vital signs lungs are clear to auscultation patient with regular rate and rhythm on cardiovascular exam right wrist is splinted. Disposition Summary: 07/10/23 13:37 Discharge Ordered Location: Home kb Condition: Stable kb Diagnosis - Dyspnea kb Followup: kb - With: Emergency Department - When: As needed - Reason: Worsening of condition Followup: kb - With: Private Physician - When: 2 - 3 days - Reason: Recheck today's complaints, Continuance of care, Re-evaluation by your physician Discharge Instructions: - Discharge Summary Sheet kb - Shortness of Breath, Adult, [id number] kb Forms: - Medication Reconciliation Form kb - Thank You Letter kb - Antibiotic Education kb - Prescription Opioid Use kb - Patient Portal Instructions kb Signatures: Dispatcher [employer] EDShiloh Curtis FNP-C FNP-Duke Segovia MD MD cp3 Natacha Flaherty, RN RN Keshia Dove Corrections: (The following items were deleted from the chart) 13:23 13:11 Labs - recollect needed ordered. elena mb9 13:57 12:46 Chest Single View+RAD.RAD.BRZ ordered. EDWV EDMS
[2023-07-10 14:07] VITALS: TEMP 98.4; O2SAT 100
[2023-07-10 14:10] VITALS: BP 108/72
--- NOTE | 2023-07-12 15:32 | EKG ---
Test Date: 2023-07-10 Test Time: 12:46:40 Mechanical Shovel Operator: TARI MEASUREMENT RESULTS: Intervals: Rate: 67 MI: 144 QRSD: 80 QT: 396 QTc: 418 [place]: P: 44 MI: 144 QRS: 70 T: 32 INTERPRETIVE STATEMENTS: Normal sinus rhythm Normal ECG Compared to ECG 07/07/2023 10:28:59 No significant changes Electronically Signed On 07-12-23 15:30:24 CDT by Tavon Jolley
== END 2023-07-10 14:02 | disposition home or self-care (01) ==
LOC: ER 12:38
DX: R06.00 Dyspnea, unspecified (principal); R07.9 Chest pain, unspecified; Z88.6 Allergy status to analgesic agent
CPT/HCPCS: 93005; 99284